=== PATIENT | male | born 1935 | race Caucasian/White ===

== ENCOUNTER 2016-06-10 09:35 | Emergency (ER) | payer OTHER ==
[~2016-06-10] VITALS: Ht 177.8 cm; Wt 68.0 kg
[~2016-06-10 09:35] MED LIST: ASPI1TAB7 PO; MEVA40TA PO; NAPR500 PO; REST30CA PO; ULTR50TA PO; [UNRECOGNIZED DRUG - REMARK]
[2016-06-10 09:37] VITALS: BP 153/72; PULSE 56; RESP 20; TEMP 97.4; O2SAT 100
--- NOTE | 2016-06-10 11:46 | RADRPT ---
EXAM DATE/TIME: 06/10/2016 11:16 [place] COMPARISON: No previous studies available for comparison. INDICATIONS : Left hip pain. MEDICAL HISTORY : None. SURGICAL HISTORY : None. ENCOUNTER: Initial ACUITY: 4 - 6 days PAIN SCORE: 10/10 LOCATION: Left Hip. FINDINGS: Examination of the left hip was performed with AP Pelvis. Advanced arthropathy is seen of the left hi p joint. There is marked joint space narrowing with [id number] apposition. Subchondral sclerosis is seen along the acetabular rim. There is a large subcortical cyst along the superolateral margin of t he acetabulum. Mild subchondral sclerosis is also seen along the articulating surface of the femur. The bony pelvis is intact. Moderate arthropathy is seen of the right hip. 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 Mild/moderate arthropathy of the right hip. Intact pelvis. No evidence of acute fracture or subluxation. Sergio Segundo MD on June 10, 2016 at 11:41 Board Certified Radiologist. This report was verified electronically.
--- NOTE | 2016-06-10 11:54 | PD ---
HPI Chief Complaint: Hip Injury Time Seen by Provider: 11:38 Travel History International Travel<30 days: No Contact w/Intl Traveler<30days: No Traveled to known affect area: No History of Present Illness HPI This is a 81-year-old male who presents to the emergency department having been walking on a treadmill 5 days ago when he felt like something slipped in his left hip. He didn't have much pain then but the day after he developed throbbing constant pain in his left hip, worse in the back near the buttock, worse with walking, improved with rest. The pain is nonradiating and he has no associated numbness or weakness. He denies any fevers or chills and has no history of diabetes. The patient reports that he was told 10 years ago that he needs bilateral hip replacements but he never had any problems so he never got it done. He has been able to walk since the injury. PFSH Past Medical History Heart Rhythm Problems: Yes Cancer: No High Cholesterol: Yes Diminished Hearing: No Endocrine: No Genitourinary: Yes (Years ago.) Hypertension: Yes Immune Disorder: No Musculoskeletal: No Neurologic: No Respiratory: No Renal Failure: Yes Past Surgical History Cardiac Surgery: Yes Tonsillectomy: Yes Other Surgery: Yes (PT STATES STENT IN BLOOD VESSEL IN NECK AND KIDNEY) Social History Alcohol Use: No Tobacco Use: No Substance Use: No Allergies-Medications (Allergen,Severity, Reaction): Coded Allergies: No Known Allergies (Verified , 10/25/14) Reported Meds & Prescriptions Reported Meds & Active Scripts Active Naprosyn (Naproxen) 500 Mg Tab 500 Mg PO BID PRN Reported Ultram (Tramadol HCl) 50 Mg Tab 50 Mg PO Q4H PRN [unk bp med] DAILY Restoril 30 mg (Temazepam) 30 Mg Cap 1 Cap PO HS Aspirin 81 mg Tab (Aspirin) 81 Mg Tab 81 Mg PO DAILY Lovastatin 40 Mg Tab 40 Mg PO DAILY Review of Systems Except as stated in HPI: all other systems reviewed are Neg Physical Exam Narrative GENERAL:Well appearing, no acute distress SKIN: Focused skin assessment warm and dry. HEAD: Atraumatic. Normocephalic. EYES: Pupils equal and round. No injection or drainage. ENT: Moist mucous membranes NECK: Trachea midline. CARDIOVASCULAR: Regular rate and rhythm. No murmur appreciated. 1+ bilateral DP pulses with normal capillary refill. RESPIRATORY: Clear to auscultation. Breath sounds equal bilaterally. GASTROINTESTINAL: Abdomen soft, non-tender, nondistended. MUSCULOSKELETAL: Pain with flexion of the left hip and with external rotation NEUROLOGICAL: Awake and alert. No obvious cranial nerve deficits. Moving all extremities. PSYCHIATRIC: Appropriate mood and affect; insight and judgment normal. Data Data Last Documented VS Vital Signs Date Time Temp Pulse Resp B/P Pulse Ox O2 Delivery O2 Flow Rate FiO2 06/10/16 09:37 97.4 56 20 153/72 100 Room Air Orders Hip, Uni(Ap&Lat) W Ap Pelvis (06/10/16 11:31) MDM Medical Decision Making Medical Screen Exam Complete: Yes Emergency Medical Condition: Yes Interpretation(s) Afebrile, bradycardic, mild hypertension X-ray: Advanced osteoarthritis of the left hip Differential Diagnosis Osteoarthritis, sacroiliitis, occult fracture, meralgia paresthetica Narrative Course This is an 81-year-old male who presents to the emergency department with left hip pain that started after he was walking on a treadmill 5 days ago. He isn't reassuring neurovascular exam. X-ray confirms advanced osteoarthritis of the left hip. He was advised to take Tylenol for pain, rest his hip and follow-up with orthopedics if his symptoms are not improved. Diagnosis Primary Impression: Osteoarthritis of left hip Qualified Code: M16.12 - Primary osteoarthritis of left hip Referrals: Graham Hall MD Patient Instructions: General Instructions Additional Instructions: If you develop weakness of your legs, difficulty walking, numbness of your legs or your genital or rectal area, loss of your bowel or bladder, or difficulty urinating return to the emergency department immediately. Followup with an orthopedic doctor if your symptoms are not improved with Tylenol and rest. Med/Other Pt SpecificInfo: No Change to Meds Disposition: 01 DISCHARGE HOME Condition: Stable Vy Downs MD Jun 10, 2016 11:54
[2016-06-10] MEDS ORDERED: METO25TA3 PO (11:58)
[2016-06-10] MEDS ORDERED: LOSA100T PO (11:58)
[2016-06-10] MEDS ORDERED: LOVA40TA PO (11:58)
[2016-06-10] MEDS ORDERED: ASPI325T PO (11:58)
[2016-06-10] MEDS ORDERED: REST30CA PO (11:58)
[2016-06-10] MEDS ORDERED: AMLO5TAB2 PO (11:58)
== END 2016-06-10 12:18 | disposition home or self-care (01) ==
LOC: NEPD 09:35
DX: M16.12 Unilateral primary osteoarthritis, left hip (principal); E78.00 Pure hypercholesterolemia, unspecified; I10 Essential (primary) hypertension
CPT/HCPCS: 73502; 99283

== ENCOUNTER 2017-12-15 11:27 | Inpatient (IN) ==
[2017-12-15] MEDS ORDERED: Morphine Inj 4 MG/ML Vial IV.PUSH ONE (11:39)
[2017-12-15] MEDS ORDERED: Sod Chloride 0.9% Inj 1,000 ML IV.SIG ONE (11:39)
[2017-12-15 12:21] LABS: Baso % (Auto) 0.1 % (0.0-2.0); Hematocrit 43.5 % (39.0-51.0); Hemoglobin 14.7 gm/dL (13.0-17.0); Lymph # (Auto) 0.7 th/mm3 (1.0-4.8); Lymph % (Auto) 4.2 % (9.0-44.0); Mean Corpuscular HGB Conc 33.8 % (32.0-36.0); Mean Corpuscular Hemoglobin 29.4 pg (27.0-34.0); Mean Platelet Volume 9.1 fL (7.0-11.0); Mono # (Auto) 0.6 th/mm3 (0.0-0.9); Mono % (Auto) 3.8 % (0.0-8.0); Neut # (Auto) 14.5 th/mm3 (1.8-7.7); Neut % (Auto) 91.9 % (16.0-70.0); Platelet Count 170 th/mm3 (150-450); Red Cell Distribution Width 13.5 % (11.6-17.2); White Blood Count 15.8 th/mm3 (4.0-11.0)
--- NOTE | 2017-12-15 12:32 | ED ---
HPI General Chief Complaint: Abdominal Pain Stated Complaint: ABD Pain Time Seen by Provider: 12/15/17 11:39 Source: patient Mode of arrival: ambulatory Limitations: no limitations History of Present Illness HPI narrative: 82-year-old male presents to the emergency department via EV[facility] for evaluation of abdominal pain, nausea and vomiting that started this morning. Patient states he has not had a bowel movement in 2 days but states this is normal for him. Patient points to left lower quadrant says his pain is 10/10,constant, aching, and nonradiating. No palliative or provocative factors. Patient received 4 mg Zofran which helped controlled his nausea prior to arrival. He received 500 cc of NS IVF as well. Patient says he has had multiple dark vomitus over 24 hrs. He denies hematochezia or melena. He says he has a history of a liver artery stent placement performed 15yrs ago. He denies shortness of breath, chest pain. Denies alcohol or other illicit drug use. States he smoke 1/2 PPD cigarettes. Related Data Home Medications Medication Instructions Recorded Confirmed losartan 100 mg PO DAILY 12/15/17 12/15/17 lovastatin 40 mg PO DAILY 12/15/17 12/15/17 Allergies Allergy/AdvReac Type Severity Reaction Status Date / Time No Known Allergies Allergy Verified 12/15/17 11:52 Review of Systems ROS: all other systems reviewed are negative [facility] Medical History Medical History CAD (coronary artery disease) (Acute) Diverticulitis (Acute) HTN (hypertension) (Acute) High cholesterol (Acute) Surgical History Surgical History History of biliary stent insertion (Acute) Family History Family History Other Family history normal Social History Social History Second Hand Smoke Exposure: Yes Smoking Status: Former smoker Tobacco Type: Cigarettes How Often Do You Have a Drink Containing Alcohol: Never Recent Travel in [facility] within the Last 8 Weeks: No Recent Out of Country Travel within the Last 8 Weeks: No Immunization History Tetanus Immunization: Unsure Exam Narrative Exam Narrative: GENERAL: WD,WN in mild distress, tremulous SKIN: Warm and dry. HEAD: Atraumatic. Normocephalic. EYES: Pupils equal and round. No scleral icterus. No injection or drainage. ENT: No nasal bleeding or discharge. Mucous membranes pink and moist. NECK: Trachea midline. No JVD. no lyphadenopathy. CARDIOVASCULAR: Regular rate and rhythm. RESPIRATORY: No accessory muscle use. Clear to auscultation. Breath sounds equal bilaterally. GASTROINTESTINAL: Abdomen midline scar present, voluntary guarding present, questionable nonpulsatile mass of the LUQ, no rebound TTP, no CVAT MUSCULOSKELETAL: Extremities without clubbing, cyanosis, or edema. No obvious deformities. No tenderness palpation of the calves NEUROLOGICAL: Awake and alert. No obvious cranial nerve deficits. Motor grossly within normal limits. Five out of 5 muscle strength in the arms and legs. Normal speech. PSYCHIATRIC: Appropriate mood and affect; insight and judgment normal. Course Initial Documented Vital Signs Temperature 99.8 F H 12/15/17 11:34 Pulse Rate 86 12/15/17 11:34 Respiratory Rate 20 12/15/17 11:34 Blood Pressure 172/78 H 12/15/17 11:34 Pulse Oximetry 96 12/15/17 11:34 Last Documented Vital Signs Temperature 99.8 F H 12/15/17 11:34 Pulse Rate 107 H 12/15/17 15:48 Respiratory Rate 15 12/15/17 15:48 Blood Pressure 151/71 H 12/15/17 15:48 Pulse Oximetry 96 12/15/17 15:48 Medical Decision Making [facility] Narrative Medical decision making narrative: 82-year-old male presents to the emergency department via EVAC for abdominal pain, nausea and vomiting that started over the last 24 hours. Patient states he has not had a bowel movement in 2-3 days however, states that this is normal for him. He points to the LLQ as to his most painful area. He has had dark colored vomitus but denies melena or hematochezia. His vital signs are stable. Labs notable for white blood cells 15.8, 91.9% neutrophils, BUN/Cr 37/1.47, Alk Phos 154, lipase 69. 1L NS given. @138p Reassessed patient. He states nausea is improved. Pain continues to be 10/ 10. Ordered 500cc NS IVF, dilaudid 1mg. Flagyl 500mg, Cipro 500mg PO. Will give PO challenge. If he is able to tolerate fluids, will allow to go home. I explained the importance of follow up with a vascular specialist regarding the incidental findings or the aneurysms. @232 Reassessed patient and continues to have 10/10 abdominal pain. His vitals are HR 110, BP 144/65, SaO2 81-90 while sleeping, 94% while awake. (no h/o CPAP or COPD). Applied 2LPM O2. Ordered CXR for evaluation of hypoxia. CXR shows bibasilar atelectasis. Pt will be admitted for intractable abdominal pain and colitis. There is a questionable mass or colitis is noted. I do not believe this requires emergent therapy at this time. I spoke with Dr. Boss who agreed to the admission. Medical Screen Exam Complete: Yes Emergency Medical Condition: Yes Differential Diagnosis Differential Diagnosis: Small bowel obstruction, diverticulitis, gastritis, appendicitis, mesenteric ischemia Lab Data Result diagrams: 12/15/17 11:46 12/15/17 11:46 Lab Results 12/15/17 12/15/17 12/15/17 Range/Units 11:46 11:46 11:46 WBC 15.8 H (4.0-11.0) th/mm3 RBC 5.00 (4.50-5.90) mil/mm3 Hgb 14.7 (13.0-17.0) gm/dL Hct 43.5 (39.0-51.0) % MCV 87.0 (80.0-100.0) fL MCH 29.4 (27.0-34.0) pg MCHC 33.8 (32.0-36.0) % RDW 13.5 (11.6-17.2) % Plt Count 170 (150-450) th/mm3 MPV 9.1 (7.0-11.0) fL Neut % (Auto) 91.9 H (16.0-70.0) % Lymph % (Auto) 4.2 L (9.0-44.0) % Ritchie % (Auto) 3.8 (0.0-8.0) % Eos % (Auto) 0.0 (0.0-4.0) % Baso % (Auto) 0.1 (0.0-2.0) % Neut # (Auto) 14.5 H (1.8-7.7) th/mm3 Lymph # (Auto) 0.7 L (1.0-4.8) th/mm3 Ritchie # (Auto) 0.6 (0.0-0.9) th/mm3 Eos # (Auto) 0.0 (0.0-0.4) th/mm3 Baso # (Auto) 0.0 (0.0-0.2) th/mm3 WBC Differential . Differential Comment Auto diff final PT 11.4 (9.8-11.6) sec INR 1.1 Ratio APTT 22.6 L (24.3-30.1) sec Sodium 140 (136-145) meq/L Potassium 4.3 (3.5-5.1) meq/L Chloride 108 H (98-107) meq/L Carbon Dioxide 23.5 (21.0-32.0) meq/L Anion Gap 9 (5-15) meq/L BUN 37 H (7-18) mg/dL Creatinine 1.47 H (0.60-1.30) mg/dL Estimated GFR 46 L (>89) mL/min Random Glucose 113 H (74-106) mg/dL Calcium 8.6 (8.5-10.1) mg/dL Magnesium 2.4 (1.5-2.5) mg/dL Total Bilirubin 1.3 H (0.2-1.0) mg/dL AST 17 (15-37) U/L ALT 21 (12-78) U/L Alkaline Phosphatase 154 H (45-117) U/L C-Reactive Protein 1.30 H (0.00-0.30) mg/dL Total Protein 7.6 (6.4-8.2) g/dL Albumin 3.9 (3.4-5.0) g/dL Lipase 69 L (73-393) U/L 12/15/17 Range/Units 11:46 WBC (4.0-11.0) th/mm3 RBC (4.50-5.90) mil/mm3 Hgb (13.0-17.0) gm/dL Hct (39.0-51.0) % MCV (80.0-100.0) fL MCH (27.0-34.0) pg MCHC (32.0-36.0) % RDW (11.6-17.2) % Plt Count (150-450) th/mm3 MPV (7.0-11.0) fL Neut % (Auto) (16.0-70.0) % Lymph % (Auto) (9.0-44.0) % Ritchie % (Auto) (0.0-8.0) % Eos % (Auto) (0.0-4.0) % Baso % (Auto) (0.0-2.0) % Neut # (Auto) (1.8-7.7) th/mm3 Lymph # (Auto) (1.0-4.8) th/mm3 Ritchie # (Auto) (0.0-0.9) th/mm3 Eos # (Auto) (0.0-0.4) th/mm3 Baso # (Auto) (0.0-0.2) th/mm3 WBC Differential Differential Comment PT (9.8-11.6) sec INR Ratio APTT (24.3-30.1) sec Sodium (136-145) meq/L Potassium (3.5-5.1) meq/L Chloride (98-107) meq/L Carbon Dioxide (21.0-32.0) meq/L Anion Gap (5-15) meq/L BUN (7-18) mg/dL Creatinine (0.60-1.30) mg/dL Estimated GFR (>89) mL/min Random Glucose (74-106) mg/dL Calcium (8.5-10.1) mg/dL Magnesium (1.5-2.5) mg/dL Total Bilirubin (0.2-1.0) mg/dL AST (15-37) U/L ALT (12-78) U/L Alkaline Phosphatase (45-117) U/L C-Reactive Protein Cancelled (0.00-0.30) mg/dL Total Protein (6.4-8.2) g/dL Albumin (3.4-5.0) g/dL Lipase (73-393) U/L Imaging Data Radiologist's impression: Abdomen/Pelvis CT 12/15/17 11:39 CONCLUSION: 1. Multiple ventral hernias are noted as above. There is abnormal circumferential bowel wall thickening identified greatest at the transverse colon characteristic of colitis.This is quite prominent at the mid transverse colon and follow-up is recommended after appropriate clinical therapy to ensure no underlying mass is not present. 2. Thoracic and abdominal aortic aneurysms. Chest X-Ray 12/15/17 14:53 CONCLUSION: 1. Mild bibasilar atelectatic changes. 2. No acute infiltrate. Discharge Plan Discharge Disposition Patient Disposition: 30 Still Patient Discharge Condition Condition: Stable Discharge Details Diagnosis: Colitis Physicians Team ED Provider: Rhett Serrano ED Midlevel Provider: Erica Young Primary Care Provider: Bree Ji Attending Provider: Carmencita Boss Other Providers: Joanna Stanley ; Fiorella Easley Status ED Status: Left Department Discharge Information Discharge Date/Time: 12/15/17 16:38
[2017-12-15 12:33] LABS: Alanine Aminotransferase 21 U/L (12-78); Albumin 3.9 g/dL (3.4-5.0); Anion Gap 9 meq/L (5-15); Aspartate Aminotransferase 17 U/L (15-37); Blood Urea Nitrogen 37 mg/dL (7-18); Calcium 8.6 mg/dL (8.5-10.1); Carbon Dioxide 23.5 meq/L (21.0-32.0); Chloride 108 meq/L (98-107); Glomerular Filtration Rate 46 mL/min (>89); Glucose,Random 113 mg/dL (74-106); Lipase 69 U/L (73-393); Magnesium 2.4 mg/dL (1.5-2.5); Potassium 4.3 meq/L (3.5-5.1); Sodium 140 meq/L (136-145)
[2017-12-15 12:36] LABS: Alkaline Phosphatase 154 U/L (45-117); Total Protein 7.6 g/dL (6.4-8.2)
[2017-12-15 12:37] LABS: Activated Partial Thrombo Time 22.6 sec (24.3-30.1); INR 1.1 Ratio; Prothrombin Time 11.4 sec (9.8-11.6)
--- NOTE | 2017-12-15 13:19 | CT ---
EXAM DATE: 12/15/2017 12:42 PM EDT AGE/SEX: 82 years / Male INDICATIONS: Left side abdominal pain. Nausea, vomiting. Constipation for two days. CLINICAL DATA: This is the patient's initial encounter. Patient reports that signs and symptoms have been present for 2 days and indicates a pain score of 10/10. MEDICAL/SURGICAL HISTORY: Diverticulitis. Hypertension. None. ORAL CONTRAST: No oral contrast ingested. RADIATION DOSE: 6.64 CTDI (mGy) COMPARISON: synapse default, HIP RIGHT (AP&LAT 2/3VWS) W AP PELVIS, 06/10/2016. . TECHNIQUE: Multiple contiguous axial images were obtained through the abdomen and pelvis following b olus infusion of 71 ml Omnipaque 350 (iohexol) nonionic water-soluble contrast as a single exam dos e. No oral contrast ingested. Using automated exposure control and adjustment of the mA and/or kV ac cording to patient size, radiation dose was kept as low as reasonably achievable to obtain optimal di agnostic quality images. DICOM format image data is available electronically for review and comparis on. FINDINGS: There is linear atelectasis versus scarring in the lingula and right lower lobe. No pleural or perica rdial effusions. Diffuse atherosclerotic calcification of the aorta and iliac vasculature as well as coronary arteries. There is aneurysmal dilatation of the descending thoracic aorta up to 4.2 cm, as w ell as abdominal aortic aneurysm measuring 4.3 x 4.6 cm in AP transverse dimension on image 40 at the level of the renal arteries, and 3.4 x 3.7 cm on image 48 at the infrarenal abdominal aorta. The com mon iliac arteries are also prominent in caliber up to 1.7 cm on the right and borderline prominent o n the left up to 1.4 cm. Urinary bladder and prostate are unremarkable. There is diverticulosis of th e sigmoid colon. There is trace free fluid in the pelvis. There is abnormal circumferential bowel wal l thickening involving the mid descending colon to the proximal transverse colon. More focal pronounc ed circumferential bowel wall thickening involving the mid transverse colon extends 8.3 cm in length. This is characteristic of colitis. There is a tiny right paramedian upper abdominal ventral hernia m easuring 8.7 mm on axial image 36 containing fat. There is an abdominal wall hernia at the midline matson praumbilical level measuring 3.4 cm in transverse dimension on image 42 containing fat and mesenteric vessels. Just below this is an additional fat-containing ventral hernia measuring 5.1 cm in transver se dimension. 0.9 cm transverse abdominal wall defect containing fat on image 52 as above the umbilic us. The osseous structures demonstrate degenerative changes of the spine and bilateral hips. The righ t kidney is atrophic. Left kidney is unremarkable. Pancreas, bilateral adrenal glands, gallbladder, l iver and spleen are unremarkable. Scattered calcified granulomas are noted. CONCLUSION: 1. Multiple ventral hernias are noted as above. There is abnormal circumferential bowel wall thickening identified greatest at the transverse colon c haracteristic of colitis.This is quite prominent at the mid transverse colon and follow-up is recomme nded after appropriate clinical therapy to ensure no underlying mass is not present. 2. Thoracic and abdominal aortic aneurysms. Electronically signed by: Imtiaz Aburto MD 12/15/2017 1:18 PM EDT
[2017-12-15] MEDS ORDERED: Ciprofloxacin 500 MG Tablet PO ONE (13:36)
[2017-12-15] MEDS ORDERED: HYDROmorphone PF Inj 2 MG/ML Vial IV.PUSH ONE (13:36)
[2017-12-15] MEDS ORDERED: metroNIDAZOLE 500 MG Tablet PO ONE (13:36)
[2017-12-15] MEDS ORDERED: Sodium Chlor 0.9% Inj 500 ML IV.SIG SCH (14:00)
--- NOTE | 2017-12-15 15:38 | XR ---
EXAM DATE: 12/15/2017 2:53 PM EDT AGE/SEX: 82 years / Male INDICATIONS: Short of breath. CLINICAL DATA: This is the patient's initial encounter. Patient reports that signs and symptoms have been present for 1 day and indicates a pain score of 0/10. MEDICAL/SURGICAL HISTORY: . Diverticulitis. Hypertension. None. COMPARISON: synapse default, CHEST SINGLE AP, 07/12/2014. . FINDINGS: A single AP view of the chest demonstrates the lungs to be symmetrically aerated with mild bibasilar atelectatic changes. No confluent infiltrate or effusion. Heart size is upper limits of normal accoun ting for technique. Degenerative spurring of the dorsal spine. Anterior fixation of the lower cervica l spine. CONCLUSION: 1. Mild bibasilar atelectatic changes. 2. No acute infiltrate. Electronically signed by: Sal Valdez MD 12/15/2017 3:36 PM EDT
[2017-12-15] MEDS ORDERED: Bisacodyl 10 MG Supp RECTAL PRN (15:47)
--- NOTE | 2017-12-15 15:47 | P.HPIM ---
History of Present Illness Service: [facility] Primary Care Physician: Bree Ji MD Chief Complaint: abd pain History of Present Illness: This is an 82-year-old CM with PMHx of HTN, CAD, and HLD who presented to the ED for evaluation of abdominal pain, nausea and vomiting that started this morning at 5AM. Patient states he has not had a bowel movement in 2 days but states this is his baseline. Patient reports LLQ pain, 5/10, constant, aching, and nonradiating. Sx worsening with movement, alleviated with Morphine. Patient reports emesis has been dark brown, denies hematochezia or melena. Patient denies fever, chills, sick contacts, and diarrhea. Patient is a smoker. Hx of CAD on plavix started in 2011 but noncompliant with Plavix. Does not see Cards as OP. Patient denies use of NSAID's. Hx of biliary stent placement. Patient is a poor historian. - Diagnosis (1) HTN (hypertension) (2) Acute kidney failure (3) AAA (abdominal aortic aneurysm) (4) Colitis (5) Leukocytosis Review of Systems All other systems reviewed negative except as stated in HPI PMFSH - History History Provided By: Patient, Family Member Caretaker / EMT - Medical History Medical History: Medical History (Last Updated 12/15/17 @ 16:53 by Carmencita Boss MD) CAD (coronary artery disease) Diverticulitis HTN (hypertension) High cholesterol - Surgical History Surgical History: Surgical History (Last Updated 12/15/17 @ 16:54 by Carmencita Boss MD) History of biliary stent insertion - Family History Family History: Family History (Last Updated 12/15/17 @ 16:58 by Carmencita Boss MD) Other Family history normal - Tobacco History Second Hand Smoke Exposure: Yes Tobacco Use In Past 30 Days: Yes Smoking Status: Current every day smoker Tobacco Type: Cigarettes - Alcohol History How Often Do You Have a Drink Containing Alcohol: Never - Travel History Recent Travel in the [place] Within the Last 8 Weeks: No Recent Travel Out of the Country Within the Last 8 Weeks: No - Immunization History Tetanus Immunization: Unsure Medications and Allergies Active Medications: Active Medications Sodium Chloride (Ns Inj) 500 mls @ 0 mls/hr IV.SIG BOLUS TERI Last Infusion: 12/15/17 14:38 Dose: Infused Sodium Chloride (Ns Flush) 2 ml IV.FLUSH PRN PRN PRN Reason: FLUSH AFTER USING IV ACCESS Allergies Allergy/AdvReac Type Severity Reaction Status Date / Time No Known Allergies Allergy Verified 12/15/17 11:52 Home Medications Medication Instructions Recorded Confirmed Type losartan 100 mg PO DAILY 12/15/17 12/15/17 History lovastatin 40 mg PO DAILY 12/15/17 12/15/17 History Exam Vital signs: Vital Signs 12/15/17 11:34 12/15/17 13:37 12/15/17 13:46 Temperature 99.8 F H Pulse Rate 86 102 H Respiratory Rate 20 18 10 L Blood Pressure 172/78 H 154/72 H Pulse Oximetry 96 93 L Intake & Output 12/14/17 12/15/17 12/15/17 18:59 06:59 18:59 Intake Total 1500 / 1500 Balance 1500 / 1500 Weight 68.039 kg Intake: IV 1500 / 1500 NS Inj 1,000 ML @ Wide Open IV. 1000 / 1000 SIG BOLUS ONE Rx#:[id number] NS Inj 500 ML @ Wide Open IV. 500 / 500 SIG BOLUS TERI Rx#:[id number] Narrative: GENERAL: Thin male, in no acute distress, lying comfortably in bed SKIN: Warm and dry. HEENT: Normocephalic. No scleral icterus. No injection or drainage. PERRLA, MOM. NECK: Supple, trachea midline. No JVD or lymphadenopathy. CARDIOVASCULAR: Regular rate and rhythm without murmurs, gallops, or rubs. RESPIRATORY: Breath sounds equal bilaterally. No accessory muscle use. GASTROINTESTINAL: Abdomen soft, non-tender, nondistended. Neg rebound. No acute abdomen. Ventral hernia noted with valsalva. MUSCULOSKELETAL: No cyanosis, or edema. BACK: Nontender without obvious deformity. No CVA tenderness. NEURO/PSYCH: AAOx3, no focal deficits, motor system intact 5/5 x 4. Pleasant, cooperative. Results - Labs CBC & Chem 7: 12/15/17 11:46 12/15/17 11:46 Labs: Short CBC 12/15/17 Range/Units 11:46 WBC 15.8 H (4.0-11.0) th/mm3 Hgb 14.7 (13.0-17.0) gm/dL Hct 43.5 (39.0-51.0) % Plt Count 170 (150-450) th/mm3 [facility] 12/15/17 11:46 Sodium 140 Potassium 4.3 Chloride 108 H Carbon Dioxide 23.5 BUN 37 H Creatinine 1.47 H Calcium 8.6 Liver Function 12/15/17 Range/Units 11:46 Total Bilirubin 1.3 H (0.2-1.0) mg/dL AST 17 (15-37) U/L ALT 21 (12-78) U/L Alkaline Phosphatase 154 H (45-117) U/L Albumin 3.9 (3.4-5.0) g/dL - Imaging Impressions Abdomen/Pelvis CT 12/15/17 11:39 CONCLUSION: 1. Multiple ventral hernias are noted as above. There is abnormal circumferential bowel wall thickening identified greatest at the transverse colon characteristic of colitis.This is quite prominent at the mid transverse colon and follow-up is recommended after appropriate clinical therapy to ensure no underlying mass is not present. 2. Thoracic and abdominal aortic aneurysms. Chest X-Ray 12/15/17 14:53 CONCLUSION: 1. Mild bibasilar atelectatic changes. 2. No acute infiltrate. Caprini VTE Risk Assessment Caprini VTE Risk Assessment: No/Low Risk (score <= 1) Caprini Risk Assessment Model: Point Value = 1 Point Value = 2 Point Value = 3 Point Value = 5 Age 41-60 Minor surgery BMI > 25 kg/m2 Swollen legs Varicose veins or History of unexplained or recurrent spontaneous Oral contraceptives or hormone replacement Sepsis (< 1 month) Serious lung disease, including pneumonia (< 1 month) Abnormal pulmonary function Acute myocardial infarction Congestive heart failure (< 1 month) History of inflammatory bowel disease Medical patient at bed rest Age 61-74 Arthroscopic surgery Major open surgery (> 45 min) Laparoscopic surgery (> 45 min) Malignancy Confined to bed (> 72 hours) Immobilizing plaster cast Central venous access Age >= 75 History of VTE Family history of VTE Factor V Leiden Prothrombin [id number] Lupus anticoagulant Anticardiolipin antibodies Elevated serum homocysteine Heparin-induced thrombocytopenia Other congenital or acquired thrombophilia Stroke (< 1 month) Elective arthroplasty Hip, pelvis, or leg fracture Acute spinal cord injury (< 1 month) Prophylaxis Regimen: Total Risk Factor Score Risk Level Prophylaxis Regimen 0-1 Low Early ambulation 2 Moderate Order ONE of the following: *Sequential Compression Device (SCD) *Heparin 5000 units SQ BID 3-4 Higher Order ONE of the following medications: *Heparin 5000 units SQ TID *Enoxaparin/Lovenox 40 mg SQ daily (WT < 150 kg, CrCl > 30 mL/min) *Enoxaparin/Lovenox 30 mg SQ daily (WT < 150 kg, CrCl > 10-29 mL/min) *Enoxaparin/Lovenox 30 mg SQ BID (WT < 150 kg, CrCl > 30 mL/min) AND/OR *Sequential Compression Device (SCD) 5 or more Highest Order ONE of the following medications: *Heparin 5000 units SQ TID (Preferred with Epidurals) *Enoxaparin/Lovenox 40 mg SQ daily (WT < 150 kg, CrCl > 30 mL/min) *Enoxaparin/Lovenox 30 mg SQ daily (WT < 150 kg, CrCl > 10-29 mL/min) *Enoxaparin/Lovenox 30 mg SQ BID (WT < 150 kg, CrCl > 30 mL/min) AND *Sequential Compression Device (SCD) Assessment and Plan - Assessment (1) HTN (hypertension) Code(s): I10 - Essential (primary) hypertension Status: Chronic (2) Acute kidney failure Code(s): N17.9 - Acute kidney failure, unspecified Status: Acute (3) AAA (abdominal aortic aneurysm) Code(s): I71.4 - Abdominal aortic aneurysm, without rupture Status: Chronic (4) Colitis Code(s): K52.9 - Noninfective gastroenteritis and colitis, unspecified Status : Acute (5) Leukocytosis Code(s): D72.829 - Elevated white blood cell count, unspecified Status: Acute - Plan This is an 82-year-old CM with PMhx of HTN and HLD admitted for IP mgmt of Abd pain and per CT found to have Colitis/Diverticulosis, patient admitted for IVF, antiemetics, and ABX, HD#1 1. Abdominal Pain/Colitis/Diverticulosis Likely due to Colitis Dx per CT ABD Cont. Cipro PO BID and Flagyl PO TID Morphine/Zofran PRN NPO, IVF's, PPI IV, Hemoccult in case of Upper GI Bleed GI consulted, appreciate assistance with management CT ABD: Multiple ventral hernias are noted as above. There is abnormal circumferential bowel wall thickening identified greatest at the transverse colon characteristic of colitis. This is quite prominent at the mid transverse colon and follow-up is recommended after appropriate clinical therapy to ensure no underlying mass is not present. Thoracic and abdominal aortic aneurysms. 2. Acute Kidney Injury BUN 37, Cr 1.47 (Cr 1.18 on 06/2014) Cont. NS at 125ml/hr Avoid nephrotoxic meds Follow-up BMP in AM 3. Hypertension Continue home losartan 4. Hyperlipidemia Continue home statin 5. History of CAD History of NSTEMI in 2014, Plavix stopped a few months ago Patient does not follow-up with cardiology Patient reports that he does not want to resume Plavix and admits to noncompliance 6. Leukocytosis WBC 15.8 on admission We will obtain CRP Will obtain U/A and blood cultures CXR Neg 7. Aortic Aneurysm Dx per CT ABX Dilatation of the descending thoracic aorta up to 4.2 cm, as well as abdominal aortic aneurysm measuring 4.3 x 4.6 cm in AP transverse dimension on image 40 at the level of the renal arteries, and 3.4 x 3.7 cm on image 48 at the infrarenal abdominal aorta. AAA 3.6cm on CT ABD on 06/2014 We will consult vascular surgery, appreciate assistance with management 8. Bibasilar Atelectasis Dx per CXR Incentive spirometer ordered and encourage 9. Abd Wall/Ventral Hernias per CT Containing fat, also present per CT ABD 06/2011 No rebound tenderness or sx of acute abdomen 10. Tobacco Abuse Encourage cessation and risks discussed Offer to continue nicotine patch if patient desires 11. DVT PPX: SCD's Code Status: full Discussed Condition With: patient, RN
--- NOTE | 2017-12-15 16:54 | P.PNVS ---
Subjective Subjective/Hospital Course: 82-year-old gentleman admitted for unrelated reasons i.e. diverticulosis with partial LBO and on CT of the chest and abdomen has incidental findings of 4.2 cm in diameter ascending aortic aneurysm and about 4 cm in diameter infrarenal abdominal aortic aneurysm extending into the iliac arteries. At this point neither of these lesions is life-threatening or suspected of rapid expansion or rupture and therefore observation will be necessary in the future. Patient is clearly not a candidate for the ascending aortic aneurysm repair however the abdominal aortic aneurysm will be addressed if it grows over 5.5 cm in diameter in the future I will continue to follow patient also from the abdominal surgery point, as far as his diverticulosis and partial LBO is concerned and if then any surgical intervention is needed will address it myself. Full consult dictated Thanks J Objective Vital Signs / I&O: Vital Signs 12/15/17 11:34 12/15/17 13:37 12/15/17 13:46 Temperature 99.8 F H Pulse Rate 86 102 H Respiratory Rate 20 18 10 L Blood Pressure 172/78 H 154/72 H Pulse Oximetry 96 93 L 12/15/17 15:48 Temperature Pulse Rate 107 H Respiratory Rate 15 Blood Pressure 151/71 H Pulse Oximetry 96 Intake & Output 12/14/17 12/15/17 12/15/17 18:59 06:59 18:59 Intake Total 1500 / 1500 Balance 1500 / 1500 Weight 68.039 kg Intake: IV 1500 / 1500 NS Inj 1,000 ML @ Wide Open IV. 1000 / 1000 SIG BOLUS ONE Rx#:[id number] NS Inj 500 ML @ Wide Open IV. 500 / 500 SIG BOLUS TERI Rx#:[id number] Laboratory Results - last 24 hr 12/15/17 12/15/17 12/15/17 11:46 11:46 11:46 WBC 15.8 H RBC 5.00 Hgb 14.7 Hct 43.5 MCV 87.0 MCH 29.4 MCHC 33.8 RDW 13.5 Plt Count 170 MPV 9.1 Neut % (Auto) 91.9 H Lymph % (Auto) 4.2 L [place] % (Auto) 3.8 Eos % (Auto) 0.0 Baso % (Auto) 0.1 Neut # (Auto) 14.5 H Lymph # (Auto) 0.7 L [place] # (Auto) 0.6 Eos # (Auto) 0.0 Baso # (Auto) 0.0 WBC Differential . Differential Comment Auto diff final PT 11.4 INR 1.1 APTT 22.6 L Sodium 140 Potassium 4.3 Chloride 108 H Carbon Dioxide 23.5 Anion Gap 9 BUN 37 H Creatinine 1.47 H Estimated GFR 46 L Random Glucose 113 H Calcium 8.6 Magnesium 2.4 Total Bilirubin 1.3 H AST 17 ALT 21 Alkaline Phosphatase 154 H C-Reactive Protein 1.30 H Total Protein 7.6 Albumin 3.9 Lipase 69 L 12/15/17 11:46 WBC RBC Hgb Hct MCV MCH MCHC RDW Plt Count MPV Neut % (Auto) Lymph % (Auto) [place] % (Auto) Eos % (Auto) Baso % (Auto) Neut # (Auto) Lymph # (Auto) [place] # (Auto) Eos # (Auto) Baso # (Auto) WBC Differential Differential Comment PT INR APTT Sodium Potassium Chloride Carbon Dioxide Anion Gap BUN Creatinine Estimated GFR Random Glucose Calcium Magnesium Total Bilirubin AST ALT Alkaline Phosphatase C-Reactive Protein Cancelled Total Protein Albumin Lipase Impressions Abdomen/Pelvis CT 12/15/17 11:39 CONCLUSION: 1. Multiple ventral hernias are noted as above. There is abnormal circumferential bowel wall thickening identified greatest at the transverse colon characteristic of colitis.This is quite prominent at the mid transverse colon and follow-up is recommended after appropriate clinical therapy to ensure no underlying mass is not present. 2. Thoracic and abdominal aortic aneurysms. Chest X-Ray 12/15/17 14:53 CONCLUSION: 1. Mild bibasilar atelectatic changes. 2. No acute infiltrate.
[2017-12-15] MEDS ORDERED: Magnesium Citrate Liq 300 ML Bottle PO ONE (17:21)
--- NOTE | 2017-12-15 17:23 | P.CONGI ---
History of Present Illness Consult date: 12/15/17 Consult reason: Colitis Chief complaint: colitis History of Present Illness: Mr. Avilez is an 82-year-old male patient who presented to the emergency room today at [facility] with report of pain across lower abdomen, nausea and vomiting onset yesterday a.m. 0500. Patient describes the pain as a cramping sensation and rates same at 7 out of 10 at this time. He denies that there are any aggravating or alleviating factors. He reports vomiting several times over the last 24 hours "black stuff". Of note, patient states that he takes 1 full strength aspirin 325 mg p.o. daily for his blood pressure. Patient denies hematochezia or melena. Patient states he has a history of liver artery stent placement performed in 2002 and has not had follow-up since. Again, patient reports pain across lower abdomen, pointing to left lower quadrant stating "it is worse there ". Patient denies having any fever or chills. States last colonoscopy in 2002 where he recollects they found polyps that were benign. He reports having 2-3 hard brown bowel movements daily as a normality for him. He denies any noted bleeding. Patient denies ever having had an upper endoscopy. 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 He endorses dysphagia and denies odynophagia. Patient states he smokes 1 pack/day and denies any alcohol use. Patient denies any known family history of gastrointestinal disorders/diseases. (12/15) CT abdomen and pelvis done on admission revealed the following--> Multiple ventral hernias are noted as above.There is abnormal circumferential bowel wall thickening identified greatest at the transverse colon characteristic of colitis.This is quite prominent at the mid transverse colon and follow-up is recommended after appropriate clinical therapy to ensure no underlying mass is not present. Thoracic and abdominal aortic aneurysms. Our service has been consulted to evaluate patient's report of Abdominal pain, Colitis. 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 - Medical History Medical History: Medical History (Last Updated 12/15/17 @ 16:53 by Carmencita Boss MD) CAD (coronary artery disease) Diverticulitis HTN (hypertension) High cholesterol - Surgical History Surgical History: Surgical History (Last Updated 12/15/17 @ 16:54 by Carmencita Boss MD) History of biliary stent insertion - Family History Family History: Family History (Last Updated 12/15/17 @ 16:58 by Carmencita Boss MD) Other Family history normal - Tobacco History Tobacco Use In Past 30 Days: Yes Smoking Status: Former smoker Tobacco Type: Cigarettes - Alcohol History How Often Do You Have a Drink Containing Alcohol: Never - Travel History Recent Travel in the [place] Within the Last 8 Weeks: No Recent Travel Out of the Country Within the Last 8 Weeks: No - Immunization History Tetanus Immunization: Unsure <Mallory Hernandez - Last Filed: 12/15/17 17:24> - Medical History Medical History: Medical History (Last Updated 12/15/17 @ 16:53 by Carmencita Boss MD) CAD (coronary artery disease) Diverticulitis HTN (hypertension) High cholesterol - Surgical History Surgical History: Surgical History (Last Updated 12/15/17 @ 16:54 by Carmencita Boss MD) History of biliary stent insertion - Family History Family History: Family History (Last Updated 12/15/17 @ 16:58 by Carmencita Boss MD) Other Family history normal <Joanna Stanley - Last Filed: 12/15/17 19:17> Medications and Allergies Active Medications: Active Medications Acetaminophen (Tylenol) 650 mg PO Q4H PRN PRN Reason: Temp > 100.4 Al Hydroxide/Mg Hydroxide (Milk Of Magnesia Liq) 30 ml PO Q12H PRN PRN Reason: Mild Constipation Bisacodyl (Dulcolax Supp) 10 mg RECTAL DAILY PRN PRN Reason: SEVERE CONSITIPATION Ciprofloxacin HCl (Cipro) 500 mg PO Q12HR TERI Sodium Chloride (Ns Inj) 500 mls @ 0 mls/hr IV.SIG BOLUS TERI Last Infusion: 12/15/17 14:38 Dose: Infused Sodium Chloride (Ns Inj) 1,000 mls @ 125 mls/hr IV.CONT .Q8H TERI Lactulose (Lactulose Liq) 30 ml PO DAILY PRN PRN Reason: SEVERE CONSITIPATION Losartan Potassium (Cozaar) 100 mg PO DAILY [facility] Metronidazole (Flagyl) 500 mg PO Q8HR [facility] Morphine Sulfate (Morphine Inj) 2 mg IV.PUSH Q4H PRN PRN Reason: PAIN SCALE 1 TO 10 Ondansetron HCl (Zofran Inj) 4 mg IV.PUSH Q6H PRN PRN Reason: NAUSEA OR VOMITING Pantoprazole Sodium (Protonix Inj) 40 mg IV.PUSH Q12H [facility] Pravastatin Sodium (Pravachol) 40 mg PO DAILY [facility] Senna/Docusate Sodium (Nettie-Colace) 1 tab PO BID [facility] Sennosides (Senokot) 17.2 mg PO Q12H PRN PRN Reason: Moderate Constipation Sodium Chloride (Ns Flush) 2 ml IV.FLUSH PRN PRN PRN Reason: FLUSH AFTER USING IV ACCESS <Mallory Hernandez - Last Filed: 12/15/17 17:24> Active Medications: Active Medications Acetaminophen (Tylenol) 650 mg PO Q4H PRN PRN Reason: Temp > 100.4 Al Hydroxide/Mg Hydroxide (Milk Of Magnesia Liq) 30 ml PO Q12H PRN PRN Reason: Mild Constipation Bisacodyl (Dulcolax Supp) 10 mg RECTAL DAILY PRN PRN Reason: SEVERE CONSITIPATION Ciprofloxacin HCl (Cipro) 500 mg PO Q12HR [facility] Sodium Chloride (Ns Inj) 500 mls @ 0 mls/hr IV.SIG BOLUS [facility] Last Infusion: 12/15/17 14:38 Dose: Infused Sodium Chloride (Ns Inj) 1,000 mls @ 125 mls/hr IV.CONT .Q8H [facility] Last Admin: 12/15/17 18:28 Dose: 125 mls/hr Lactulose (Lactulose Liq) 30 ml PO DAILY PRN PRN Reason: SEVERE CONSITIPATION Losartan Potassium (Cozaar) 100 mg PO DAILY [facility] Last Admin: 12/15/17 18:28 Dose: 100 mg Metronidazole (Flagyl) 500 mg PO Q8HR [facility] Morphine Sulfate (Morphine Inj) 2 mg IV.PUSH Q4H PRN PRN Reason: PAIN SCALE 1 TO 10 Ondansetron HCl (Zofran Inj) 4 mg IV.PUSH Q6H PRN PRN Reason: NAUSEA OR VOMITING Pantoprazole Sodium (Protonix Inj) 40 mg IV.PUSH Q12H [facility] Last Admin: 12/15/17 18:27 Dose: 40 mg Pravastatin Sodium (Pravachol) 40 mg PO DAILY [facility] Last Admin: 12/15/17 18:28 Dose: 40 mg Senna/Docusate Sodium (Nettie-Colace) 1 tab PO BID [facility] Sennosides (Senokot) 17.2 mg PO Q12H PRN PRN Reason: Moderate Constipation Sodium Chloride (Ns Flush) 2 ml IV.FLUSH PRN PRN PRN Reason: FLUSH AFTER USING IV ACCESS <Joanna Stanley - Last Filed: 12/15/17 19:17> Allergies Allergy/AdvReac Type Severity Reaction Status Date / Time No Known Allergies Allergy Verified 12/15/17 11:52 Home Medications Medication Instructions Recorded Confirmed Type losartan 100 mg PO DAILY 12/15/17 12/15/17 History lovastatin 40 mg PO DAILY 12/15/17 12/15/17 History Exam Vital signs: Vital Signs 12/15/17 11:34 12/15/17 13:37 12/15/17 13:46 Temperature 99.8 F H Pulse Rate 86 102 H Respiratory Rate 20 18 10 L Blood Pressure 172/78 H 154/72 H Pulse Oximetry 96 93 L 12/15/17 15:48 Temperature Pulse Rate 107 H Respiratory Rate 15 Blood Pressure 151/71 H Pulse Oximetry 96 Intake & Output 12/14/17 12/15/17 12/15/17 18:59 06:59 18:59 Intake Total 1500 / 1500 Balance 1500 / 1500 Weight 68.039 kg Intake: IV 1500 / 1500 NS Inj 1,000 ML @ Wide Open IV. 1000 / 1000 SIG BOLUS ONE Rx#:[id number] NS Inj 500 ML @ Wide Open IV. 500 / 500 SIG BOLUS TERI Rx#:[id number] - Constitutional mild distress - Routine HEENT Exam Head: Present: normocephalic - Routine Neck Exam Absent: tenderness, swelling - Routine Respiratory Exam Present: CTA bilaterally. Absent: accessory muscle use Comments: Patient has frequent cough that he states is normal for him since his cervical spine surgery in 2002 - Routine Cardiovascular Exam Present: RRR - Routine Abdominal Exam Present: soft, normoactive bowel sounds, tenderness. Absent: distended, guarding, firm - Routine Extremities Exam Present: full ROM. Absent: edema - Routine Skin Exam Present: dry, warm - Routine Neurological Exam Present: alert, oriented X3 <DavidMallory - Last Filed: 12/15/17 17:24> Vital signs: Vital Signs 12/15/17 11:34 12/15/17 13:37 12/15/17 13:46 Temperature 99.8 F H Pulse Rate 86 102 H Respiratory Rate 20 18 10 L Blood Pressure 172/78 H 154/72 H Pulse Oximetry 96 93 L 12/15/17 15:48 Temperature Pulse Rate 107 H Respiratory Rate 15 Blood Pressure 151/71 H Pulse Oximetry 96 Intake & Output 12/15/17 12/15/17 12/16/17 06:59 18:59 06:59 Intake Total 1500 / 1500 Balance 1500 / 1500 Weight 68.039 kg Intake: IV 1500 / 1500 NS Inj 1,000 ML @ Wide Open IV. 1000 / 1000 SIG BOLUS ONE Rx#:[id number] NS Inj 500 ML @ Wide Open IV. 500 / 500 SIG BOLUS TERI Rx#:[id number] Other: # Voids 0 Weight On Admission 68.039 kg <Joanna Stanley - Last Filed: 12/15/17 19:17> Results - Labs CBC & Chem 7: 12/15/17 11:46 12/15/17 11:46 Labs: Laboratory Results - last 24 hr 12/15/17 12/15/17 12/15/17 11:46 11:46 11:46 WBC 15.8 H RBC 5.00 Hgb 14.7 Hct 43.5 MCV 87.0 MCH 29.4 MCHC 33.8 RDW 13.5 Plt Count 170 MPV 9.1 Neut % (Auto) 91.9 H Lymph % (Auto) 4.2 L [place] % (Auto) 3.8 Eos % (Auto) 0.0 Baso % (Auto) 0.1 Neut # (Auto) 14.5 H Lymph # (Auto) 0.7 L [place] # (Auto) 0.6 Eos # (Auto) 0.0 Baso # (Auto) 0.0 WBC Differential . Differential Comment Auto diff final PT 11.4 INR 1.1 APTT 22.6 L Sodium 140 Potassium 4.3 Chloride 108 H Carbon Dioxide 23.5 Anion Gap 9 BUN 37 H Creatinine 1.47 H Estimated GFR 46 L Random Glucose 113 H Calcium 8.6 Magnesium 2.4 Total Bilirubin 1.3 H AST 17 ALT 21 Alkaline Phosphatase 154 H C-Reactive Protein 1.30 H Total Protein 7.6 Albumin 3.9 Lipase 69 L 12/15/17 11:46 WBC RBC Hgb Hct MCV MCH MCHC RDW Plt Count MPV Neut % (Auto) Lymph % (Auto) [place] % (Auto) Eos % (Auto) Baso % (Auto) Neut # (Auto) Lymph # (Auto) [place] # (Auto) Eos # (Auto) Baso # (Auto) WBC Differential Differential Comment PT INR APTT Sodium Potassium Chloride Carbon Dioxide Anion Gap BUN Creatinine Estimated GFR Random Glucose Calcium Magnesium Total Bilirubin AST ALT Alkaline Phosphatase C-Reactive Protein Cancelled Total Protein Albumin Lipase - Imaging Impressions Abdomen/Pelvis CT 12/15/17 11:39 CONCLUSION: 1. Multiple ventral hernias are noted as above. There is abnormal circumferential bowel wall thickening identified greatest at the transverse colon characteristic of colitis.This is quite prominent at the mid transverse colon and follow-up is recommended after appropriate clinical therapy to ensure no underlying mass is not present. 2. Thoracic and abdominal aortic aneurysms. Chest X-Ray 12/15/17 14:53 CONCLUSION: 1. Mild bibasilar atelectatic changes. 2. No acute infiltrate. <Mallory Hernandez - Last Filed: 12/15/17 17:24> - Labs CBC & Chem 7: 12/15/17 11:46 12/15/17 11:46 Labs: Laboratory Results - last 24 hr 12/15/17 12/15/17 12/15/17 11:46 11:46 11:46 WBC 15.8 H RBC 5.00 Hgb 14.7 Hct 43.5 MCV 87.0 MCH 29.4 MCHC 33.8 RDW 13.5 Plt Count 170 MPV 9.1 Neut % (Auto) 91.9 H Lymph % (Auto) 4.2 L [place] % (Auto) 3.8 Eos % (Auto) 0.0 Baso % (Auto) 0.1 Neut # (Auto) 14.5 H Lymph # (Auto) 0.7 L [place] # (Auto) 0.6 Eos # (Auto) 0.0 Baso # (Auto) 0.0 WBC Differential . Differential Comment Auto diff final PT 11.4 INR 1.1 APTT 22.6 L Sodium 140 Potassium 4.3 Chloride 108 H Carbon Dioxide 23.5 Anion Gap 9 BUN 37 H Creatinine 1.47 H Estimated GFR 46 L Random Glucose 113 H Calcium 8.6 Magnesium 2.4 Total Bilirubin 1.3 H AST 17 ALT 21 Alkaline Phosphatase 154 H C-Reactive Protein 1.30 H Total Protein 7.6 Albumin 3.9 Lipase 69 L 12/15/17 11:46 WBC RBC Hgb Hct MCV MCH MCHC RDW Plt Count MPV Neut % (Auto) Lymph % (Auto) [place] % (Auto) Eos % (Auto) Baso % (Auto) Neut # (Auto) Lymph # (Auto) [place] # (Auto) Eos # (Auto) Baso # (Auto) WBC Differential Differential Comment PT INR APTT Sodium Potassium Chloride Carbon Dioxide Anion Gap BUN Creatinine Estimated GFR Random Glucose Calcium Magnesium Total Bilirubin AST ALT Alkaline Phosphatase C-Reactive Protein Cancelled Total Protein Albumin Lipase - Imaging Impressions Abdomen/Pelvis CT 12/15/17 11:39 CONCLUSION: 1. Multiple ventral hernias are noted as above. There is abnormal circumferential bowel wall thickening identified greatest at the transverse colon characteristic of colitis.This is quite prominent at the mid transverse colon and follow-up is recommended after appropriate clinical therapy to ensure no underlying mass is not present. 2. Thoracic and abdominal aortic aneurysms. Chest X-Ray 12/15/17 14:53 CONCLUSION: 1. Mild bibasilar atelectatic changes. 2. No acute infiltrate. <Joanna Stanley - Last Filed: 12/15/17 19:17> Assessment and Plan - Plan Mr. Baird is an 82-year-old male patient who presented to the emergency room today at [facility] with report of pain across lower abdomen, nausea and vomiting onset yesterday a.m. 0500. Patient describes the pain as a cramping sensation and rates same at 7 out of 10 at this time. He denies that there are any aggravating or alleviating factors. He reports vomiting several times over the last 24 hours "black stuff". Of note, patient states that he takes 1 full strength aspirin 325 mg p.o. daily for his blood pressure. Patient denies hematochezia or melena. Patient states he has a history of liver artery stent placement performed in 2002 and has not had follow-up since. He denies any additional abdominal surgeries. Again, patient reports pain across lower abdomen, pointing to left lower quadrant stating "it is worse there ". Patient denies having any fever or chills. States last colonoscopy in 2002 where he recollects they found polyps that were benign. He reports having 2-3 hard brown bowel movements daily as a normality for him. He denies any noted bleeding. Patient denies ever having had an upper endoscopy. 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 He endorses dysphagia and denies odynophagia. Patient states he smokes 1 pack/day and denies any alcohol use. Patient denies any known family history of gastrointestinal disorders/diseases. (12/15) CT abdomen and pelvis done on admission revealed the following--> Multiple ventral hernias are noted as above.There is abnormal circumferential bowel wall thickening identified greatest at the transverse colon characteristic of colitis.This is quite prominent at the mid transverse colon and follow-up is recommended after appropriate clinical therapy to ensure no underlying mass is not present. Thoracic and abdominal aortic aneurysms. Our service has been consulted to evaluate patient's report of abdominal pain, colitis Colitis/abdominal pain CT abdomen and pelvis results as noted above. WBC 15.8 hemoglobin 14.7 hematocrit 43.3 platelet count 170 INR 1.1 BUN 37 creatinine 1.47 GFR 46 total bilirubin 1.3 AST 17 ALT 21 alk phos 154. Due to patient's noted renal function will proceed with ultrasound of the abdomen to evaluate mesenteric vessels. Will prep patient for EGD colonoscopy tomorrow to evaluate patient's report of dark emesis and lower abdominal pain. Plan -N.p.o. -Obtain consent for EGD colonoscopy -1 bottle of mag citrate/Dulcolax 4 tablets-as prep -Continue Cipro and Flagyl -Avoid aspirin/anticoagulants -Analgesics as per attending Aleah as needed nausea -Monitor for bleeding -Continue PPI -Supportive care -Further recommendations to follow based on patient's status and findings This patient has been seen by myself and Dr. Stanley and this note is written on her behalf - Attending Attestation Dr. Stanley <Mallory Hernandez - Last Filed: 12/15/17 17:24> - Attending Attestation seen, examined agree with above vascular surgery consult noted us mesenteric vessels if n, v insert ngt stool studies <Joanna Stanley - Last Filed: 12/15/17 19:17>
[2017-12-15] MEDS: Pantoprazole Inj 40 MG Vial IV.PUSH SCH (18:27)
[2017-12-15] MEDS: Sod Chloride 0.9% Inj 1,000 ML IV.CONT SCH (18:28)
[2017-12-15] MEDS: Ciprofloxacin 500 MG Tablet PO SCH (21:29)
[2017-12-15] MEDS: Acetaminophen 325 MG Tablet PO PRN (21:29)
[2017-12-15] MEDS: Senna/Docusate Sodium 8.6/50 MG Tablet PO SCH (21:30)
[2017-12-15] MEDS: metroNIDAZOLE 500 MG Tablet PO SCH (22:16)
--- NOTE | 2017-12-15 22:55 | MB ---
cc: Fiorella Easley MD DATE: 12/15/2017 CONSULTING PHYSICIAN: Fiorella Easley MD, vascular surgery. REASON FOR CONSULTATION: A thin thoracic aneurysm, abdominal aortic infrarenal aneurysm, and colitis with partial lysed bowel obstruction. HISTORY OF PRESENT ILLNESS: This 83-year-old man presented to the emergency room at [facility] today with cramping abdominal pain, which has been going on for about 2 days. The patient vomited several times in the last day and noted black stuff in his vomit. This patient did not have bowel movements for about 3 days. States that he goes to bathroom only about twice a week with laxatives, has had several episodes of diverticulitis and has known diverticulosis. States he had about 5 years ago colonoscopy. On the workup, he was found to have aortic aneurysms and therefore consult was placed. PAST MEDICAL HISTORY: Coronary artery disease, known diverticulitis attacks with chronic diverticulosis, hypertension, hyperlipidemia. PAST SURGICAL HISTORY: The biliary stent placements in 2002 and some sort of biliary surgery as patient had an obvious abdominal incision. SOCIAL HISTORY: The patient used to smoke, does not drink. 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 PHYSICAL EXAMINATION: GENERAL: An 83-year-old gentleman, awake, alert, and oriented. HEENT: Normocephalic. No trauma to the head. Pupils are equal and reactive. Extraocular muscles intact. NECK: Supple. Bilateral carotid pulses and bilateral faint bruits. CHEST: Clear. Bilateral breath sounds, decreased over both lungs rice consistent with some degree of chronic obstructive pulmonary disease. HEART: Regular rhythm. The patient is a normotensive. ABDOMEN: Soft, distended, tender in the left lower quadrant and pelvis with some rebound, but no guarding. Midline scar from previous surgeries, the patient states some sort of biliary procedure. No masses noted on palpation, but the patient definitely is tender in the left lower quadrant and some firmness is present, which is consistent with probably chronic diverticulitis and firm bowel there. BACK: Normal. EXTREMITIES: The patient has bilateral femoral, popliteal, dorsalis pedis, and posterior tibial pulses on Doppler and then a weak femoral and dorsalis pedis on palpation. No signs of acute vascular deficit. NEUROLOGIC: The patient is grossly intact. IMPRESSION AND RECOMMENDATIONS: I reviewed laboratory notes and procedure. This patient has several issues: 1. The patient has an ascending aortic aneurysm measuring about 4 cm in diameter. He does not have significant aortic insufficiency from listening to his chest and the patient would not be a candidate for repair of this at this age unless it was an absolute emergency. As far abdominal aortic aneurysm is concerned, this is an infrarenal lesion measuring about 3.8 cm and should be only followed. If the aneurysm would enlarge rapidly or reach a size of about 5.5 cm, then endovascular repair would be amenable and a possible option. 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 Right now, this is not an issue. 2. As far as the colitis is concerned, this patient clearly has an area of thickened bowel from the distal descending colon to the sigmoid colon and then extensive diverticulosis in the sigmoid colon. I believe the patient has diverticulosis and on the top of that colitis, which narrowed down his bowel and that is why he is presenting with essentially partial large bowel obstruction from functional cause. With appropriate antibiotics, this should resolve and then the patient can be colonoscoped. Right now, he does not require any surgery; but, upon the colonoscopy, we will have to decide if the patient requires anything done. I will continue to follow the patient for the same. Thank you very much for the referral. CRITICAL CARE TIME: 38 minutes. MD VIRGIE Aldridge/lia , 10:01 PM , 10:13 PM
[2017-12-16] MEDS: Sod Chloride 0.9% Inj 1,000 ML IV.CONT SCH ×3 (01:06→15:21)
[2017-12-16] MEDS: Pantoprazole Inj 40 MG Vial IV.PUSH SCH ×2 (04:37→17:57)
[2017-12-16] MEDS: metroNIDAZOLE 500 MG Tablet PO SCH ×2 (05:27→14:25)
[2017-12-16 08:43] LABS: Baso % (Auto) 0.1 % (0.0-2.0); Eos % (Auto) 0.1 % (0.0-4.0); Hematocrit 43.7 % (39.0-51.0); Hemoglobin 14.2 gm/dL (13.0-17.0); Lymph # (Auto) 1.2 th/mm3 (1.0-4.8); Lymph % (Auto) 6.4 % (9.0-44.0); Mean Corpuscular HGB Conc 32.5 % (32.0-36.0); Mean Corpuscular Hemoglobin 28.6 pg (27.0-34.0); Mean Corpuscular Volume 87.8 fL (80.0-100.0); Mean Platelet Volume 9.5 fL (7.0-11.0); Mono # (Auto) 1.1 th/mm3 (0.0-0.9); Mono % (Auto) 6.3 % (0.0-8.0); Neut # (Auto) 15.8 th/mm3 (1.8-7.7); Neut % (Auto) 87.1 % (16.0-70.0); Platelet Count 149 th/mm3 (150-450); Red Blood Count 4.97 mil/mm3 (4.50-5.90); Red Cell Distribution Width 13.7 % (11.6-17.2); White Blood Count 18.1 th/mm3 (4.0-11.0)
[2017-12-16 09:02] LABS: Alanine Aminotransferase 29 U/L (12-78); Albumin 3.1 g/dL (3.4-5.0); Alkaline Phosphatase 153 U/L (45-117); Anion Gap 10 meq/L (5-15); Aspartate Aminotransferase 115 U/L (15-37); Blood Urea Nitrogen 44 mg/dL (7-18); Calcium 7.9 mg/dL (8.5-10.1); Carbon Dioxide 17.7 meq/L (21.0-32.0); Chloride 113 meq/L (98-107); Glomerular Filtration Rate 41 mL/min (>89); Glucose,Random 101 mg/dL (74-106); Potassium 4.3 meq/L (3.5-5.1); Sodium 141 meq/L (136-145); Total Protein 6.8 g/dL (6.4-8.2)
[2017-12-16] MEDS ORDERED: Morphine Inj 4 MG/ML Vial IV.PUSH ONE (09:08)
--- NOTE | 2017-12-16 09:09 | P.PN ---
Subjective Interval history: Follow-up for colitis. Patient reports continued intractable sharp stabbing 10/ 10 left lower quadrant abdominal pain with radiation across his lower abdomen. Reports nausea with episodes of vomiting overnight, none since 7 AM this morning. Denies fevers or chills. He reports small amount of dark stools, denies any bright red blood. Denies any other medical complaints at this time. Physical Exam Vital signs: Vital Signs 12/15/17 11:34 12/15/17 13:37 12/15/17 13:46 Temperature 99.8 F H Pulse Rate 86 102 H Respiratory Rate 20 18 10 L Blood Pressure 172/78 H 154/72 H Pulse Oximetry 96 93 L 12/15/17 15:48 12/15/17 20:00 12/16/17 00:00 Temperature 98.0 F 98.5 F Pulse Rate 107 H 100 H 89 Respiratory Rate 15 19 19 Blood Pressure 151/71 H 121/70 115/58 L Pulse Oximetry 96 90 L 12/16/17 04:00 12/16/17 08:00 Temperature 98.4 F 98.2 F Pulse Rate 89 82 Respiratory Rate 18 16 Blood Pressure 123/60 129/62 Pulse Oximetry 92 L 93 L Intake & Output 12/15/17 12/16/17 12/16/17 18:59 06:59 18:59 Intake Total 1500 / 1500 1000 / 1000 Output Total 250 / 250 Balance 1500 / 1500 750 / 750 Weight 68.039 kg 73.9 kg Intake: IV 1500 / 1500 1000 / 1000 NS Inj 1,000 ML @ 125 mls/hr IV 1000 / 1000 .CONT .Q8H TERI Rx#:[id number] NS Inj 1,000 ML @ Wide Open IV. 1000 / 1000 SIG BOLUS ONE Rx#:[id number] NS Inj 500 ML @ Wide Open IV. 500 / 500 SIG BOLUS TERI Rx#:[id number] Output: Urine 250 / 250 Other: # Voids 0 Weight On Admission 68.039 kg Narrative: GENERAL: Well-nourished, well-developed elderly male patient in [facility]. SKIN: Warm and dry. No rash. HEENT: Normocephalic. Atraumatic. Pupils equal and round. Mucous membranes pink and moist. CARDIOVASCULAR: Regular rate and rhythm. No murmur appreciated. RESPIRATORY: No accessory muscle use. Clear to auscultation. Breath sounds equal bilaterally. GASTROINTESTINAL: Abdomen soft, nondistended, diffuse lower abdominal tenderness to palpation, worse at LLQ. Normoactive bowel sounds x4. MUSCULOSKELETAL: No obvious deformities. Extremities without clubbing, cyanosis , or edema. NEUROLOGICAL: Awake and alert. No obvious cranial nerve deficits. Motor grossly within normal limits. Moving all extremities spontaneously. Normal speech. PSYCHIATRIC: Appropriate mood and affect; insight and judgment normal. Results - Labs CBC & Chem 7: 12/16/17 07:00 12/16/17 07:20 Laboratory Results - last 24 hr 12/15/17 12/15/17 12/15/17 11:46 11:46 11:46 WBC 15.8 H RBC 5.00 Hgb 14.7 Hct 43.5 MCV 87.0 MCH 29.4 MCHC 33.8 RDW 13.5 Plt Count 170 MPV 9.1 Neut % (Auto) 91.9 H Lymph % (Auto) 4.2 L [place] % (Auto) 3.8 Eos % (Auto) 0.0 Baso % (Auto) 0.1 Neut # (Auto) 14.5 H Lymph # (Auto) 0.7 L [place] # (Auto) 0.6 Eos # (Auto) 0.0 Baso # (Auto) 0.0 WBC Differential . Differential Comment Auto diff final PT 11.4 INR 1.1 APTT 22.6 L Sodium 140 Potassium 4.3 Chloride 108 H Carbon Dioxide 23.5 Anion Gap 9 BUN 37 H Creatinine 1.47 H Estimated GFR 46 L Random Glucose 113 H Calcium 8.6 Magnesium 2.4 Total Bilirubin 1.3 H AST 17 ALT 21 Alkaline Phosphatase 154 H C-Reactive Protein 1.30 H Total Protein 7.6 Albumin 3.9 Lipase 69 L 12/15/17 12/16/17 12/16/17 11:46 07:00 07:20 WBC 18.1 H RBC 4.97 Hgb 14.2 Hct 43.7 MCV 87.8 MCH 28.6 MCHC 32.5 RDW 13.7 Plt Count 149 L MPV 9.5 Neut % (Auto) 87.1 H Lymph % (Auto) 6.4 L [place] % (Auto) 6.3 Eos % (Auto) 0.1 Baso % (Auto) 0.1 Neut # (Auto) 15.8 H Lymph # (Auto) 1.2 [place] # (Auto) 1.1 H Eos # (Auto) 0.0 Baso # (Auto) 0.0 WBC Differential . Differential Comment Auto diff final PT INR APTT Sodium 141 Potassium 4.3 Chloride 113 H Carbon Dioxide 17.7 L Anion Gap 10 BUN 44 H Creatinine 1.62 H Estimated GFR 41 L Random Glucose 101 Calcium 7.9 L Magnesium Total Bilirubin 1.7 H AST 115 H ALT 29 Alkaline Phosphatase 153 H C-Reactive Protein Cancelled Total Protein 6.8 D Albumin 3.1 L D Lipase - Imaging Impressions Abdomen/Pelvis CT 12/15/17 11:39 CONCLUSION: 1. Multiple ventral hernias are noted as above. There is abnormal circumferential bowel wall thickening identified greatest at the transverse colon characteristic of colitis.This is quite prominent at the mid transverse colon and follow-up is recommended after appropriate clinical therapy to ensure no underlying mass is not present. 2. Thoracic and abdominal aortic aneurysms. Chest X-Ray 12/15/17 14:53 CONCLUSION: 1. Mild bibasilar atelectatic changes. 2. No acute infiltrate. Assessment and Plan - Assessment (1) HTN (hypertension) Code(s): I10 - Essential (primary) hypertension Status: Chronic (2) Acute kidney failure Code(s): N17.9 - Acute kidney failure, unspecified Status: Acute (3) AAA (abdominal aortic aneurysm) Code(s): I71.4 - Abdominal aortic aneurysm, without rupture Status: Chronic (4) Colitis Code(s): K52.9 - Noninfective gastroenteritis and colitis, unspecified Status : Acute (5) Leukocytosis Code(s): D72.829 - Elevated white blood cell count, unspecified Status: Acute - Plan 82-year-old male with history of CAD, HTN, HLD, diverticulitis, presents with a 2-day history of lower abdominal pain, nausea, and vomiting. Sepsis with acute colitis: Patient symptomatic with abdominal pain, nausea/ vomiting. Meets sepsis criteria with leukocytosis WBC 18.1K, tachycardia HR 107 , and suspected sourcecolitis. -CT abdomen/pelvis reviewed, shows abnormal circumferential bowel wall thickening identified greatest at the transverse colon characteristic of colitis -Check stool studies to rule out infectious source -On antibiotics with IV Cipro/Flagyl -Blood cultures with NGTD -Continue PPI -Supportive treatment with IVF, antiemetics, and pain control with IV morphine as needed -Consult GI, plans for EGD/colonoscopy -Check lactic acid Thoracic/abdominal aortic aneurysms: Seen on CT abdomen/pelvis upon admission -CT showed Dilatation of the descending thoracic aorta up to 4.2 cm, as well as abdominal aortic aneurysm measuring 4.3 x 4.6 cm in AP transverse dimension on image 40 at the level of the renal arteries, and 3.4 x 3.7 cm on image 48 at the infrarenal abdominal aorta. -Consulted vascular surgery, appreciate recommendations LILLI: Creatinine 1.62, suspect prerenal secondary to dehydration -Continue IV fluid hydration -Avoid nephrotoxins -Monitor BMP Hypertension/Hyperlipidemia: chronic -continue patient's losartan and statin Tobacco Use: chronic -counseled on cessation DVT Prophylaxis: teds/SCDs; avoid chemical prophylaxis with upcoming procedure and concern for GIB
[2017-12-16] MEDS: Ciprofloxacin 500 MG Tablet PO SCH (09:36)
[2017-12-16] MEDS: Senna/Docusate Sodium 8.6/50 MG Tablet PO SCH ×2 (09:36→21:06)
[2017-12-16 15:54] LABS: Carbon Dioxide 24.6 meq/L (21.0-32.0); Potassium 4.6 meq/L (3.5-5.1)
[2017-12-16] MEDS: Ciprofloxacin 400 MG/200 ML 400 MG/200 ML PIGGYBACK IV.SIG SCH (21:06)
[2017-12-16] MEDS: Acetaminophen 325 MG Tablet PO PRN (21:06)
--- NOTE | 2017-12-16 21:16 | US ---
EXAM DATE: 12/16/2017 12:00 AM EDT AGE/SEX: 82 years / Male INDICATIONS: Mesenteric ischemia. CLINICAL DATA: This is the patient's initial encounter. Patient reports that signs and symptoms have been present for 1 day and indicates a pain score of 0/10. MEDICAL/SURGICAL HISTORY: . Coronary artery disease. Diverticulitis. Hyperlipidemia. Hyperte nsion. . Biliary stent insertion. COMPARISON: [facility] [place]BDOMEN & PELVIS W CONTRAST, 12/15/2017. . FINDINGS: Unfortunately overlying bowel gas prevents adequate evaluation of the abdominal aorta or aortic branc hes including the superior mesenteric artery. CONCLUSION: 1. Nondiagnostic exam. Overlying bowel gas precludes evaluation of aorta and branches. Electronically signed by: Kalyan Anaya MD 12/16/2017 9:14 PM EDT
[2017-12-17] MEDS: Sod Chloride 0.9% Inj 1,000 ML IV.CONT SCH ×3 (00:22→12:38)
[2017-12-17] MEDS: Pantoprazole Inj 40 MG Vial IV.PUSH SCH ×2 (04:28→16:24)
[2017-12-17] MEDS: Morphine Sulfate Inj 2 MG/ML Vial IV.PUSH PRN ×2 (04:40→08:41)
[2017-12-17] MEDS: Ciprofloxacin 400 MG/200 ML 400 MG/200 ML PIGGYBACK IV.SIG SCH ×2 (08:41→20:41)
[2017-12-17] MEDS: Senna/Docusate Sodium 8.6/50 MG Tablet PO SCH ×2 (08:41→20:41)
--- NOTE | 2017-12-17 09:33 | P.PN ---
Subjective Interval history: Follow-up for colitis. The patient reports he still has not had a bowel movement in 5 days, despite bowel prep ordered by GI team. He states prior to this, he was having very hard small stools. He reports continued diffuse lower abdominal pain. Denies fevers or chills. He reports occasional nausea, but no vomiting. He has no other medical complaints at this time. Physical Exam Vital signs: Vital Signs 12/16/17 12:00 12/16/17 16:00 12/16/17 19:52 Temperature 99.2 F 99.0 F 99.8 F H Pulse Rate 88 91 H 90 Respiratory Rate 16 16 19 Blood Pressure 142/63 H 143/72 H 132/59 L Pulse Oximetry 88 L 92 L 92 L 12/16/17 23:51 12/17/17 03:36 12/17/17 08:00 Temperature 98.1 F 98.2 F 98.9 F Pulse Rate 85 91 H 96 H Respiratory Rate 18 18 16 Blood Pressure 131/60 165/74 H 125/59 L Pulse Oximetry 90 L 91 L 90 L Intake & Output 12/16/17 12/17/17 12/17/17 18:59 06:59 18:59 Intake Total 1000 / 1000 1400 / 1400 700 / 700 Balance 1000 / 1000 1400 / 1400 700 / 700 Weight 74 kg Intake: IV 1000 / 1000 1400 / 1400 700 / 700 NS Inj 1,000 ML @ 125 mls/hr IV 1000 / 1000 1000 / 1000 700 / 700 .CONT .Q8H TERI Rx#:[id number] Cipro 400 MG/200 ML Inj 400 mg 200 / 200 In 200 ml @ 200 mls/hr IV.SIG Q12H TERI Rx#:[id number] Flagyl 500 MG Inj 100 ML @ 100 200 / 200 mls/hr IV.SIG Q8H TERI Rx#: [id number] Other: # Voids 1 1 Narrative: GENERAL: Well-nourished, well-developed elderly male patient in [facility]. SKIN: Warm and dry. No rash. HEENT: Normocephalic. Atraumatic. Pupils equal and round. Mucous membranes pink and moist. CARDIOVASCULAR: Regular rate and rhythm. No murmur appreciated. RESPIRATORY: No accessory muscle use. Clear to auscultation, although slightly diminished at bilateral bases. Breath sounds equal bilaterally. GASTROINTESTINAL: Abdomen soft, nondistended, diffuse lower abdominal tenderness to palpation, worse at LLQ. Normoactive bowel sounds x4. MUSCULOSKELETAL: No obvious deformities. Extremities without clubbing, cyanosis , or edema. NEUROLOGICAL: Awake and alert. No obvious cranial nerve deficits. Motor grossly within normal limits. Moving all extremities spontaneously. Normal speech. PSYCHIATRIC: Appropriate mood and affect; insight and judgment normal. Results - Labs CBC & Chem 7: 12/17/17 09:25 12/17/17 09:25 Laboratory Results - last 24 hr 12/16/17 12/16/17 15:16 15:16 Sodium 141 Potassium 4.6 Chloride 111 H Carbon Dioxide 24.6 Anion Gap 5 BUN 46 H Creatinine 1.63 H Estimated GFR 41 L Random Glucose 116 H Lactic Acid 1.7 Calcium 8.0 L Microbiology 12/15/17 16:55 Blood - Peripheral Aerobic Blood Culture - Preliminary No growth in 1 day 12/15/17 16:55 Blood - Peripheral Anaerobic Blood Culture - Preliminary No growth in 1 day 12/15/17 16:50 Blood - Peripheral Aerobic Blood Culture - Preliminary No growth in 1 day 12/15/17 16:50 Blood - Peripheral Anaerobic Blood Culture - Preliminary No growth in 1 day - Imaging Impressions Abdomen/Pelvis CT 12/15/17 11:39 CONCLUSION: 1. Multiple ventral hernias are noted as above. There is abnormal circumferential bowel wall thickening identified greatest at the transverse colon characteristic of colitis.This is quite prominent at the mid transverse colon and follow-up is recommended after appropriate clinical therapy to ensure no underlying mass is not present. 2. Thoracic and abdominal aortic aneurysms. Chest X-Ray 12/15/17 14:53 CONCLUSION: 1. Mild bibasilar atelectatic changes. 2. No acute infiltrate. Abdomen Ultrasound 12/16/17 00:00 CONCLUSION: 1. Nondiagnostic exam. Overlying bowel gas precludes evaluation of aorta and branches. Chest X-Ray 12/17/17 15:38 CONCLUSION: 1. Worsening left lower lung zone airspace disease with questionable trace pleural effusion. 2. Stable right lower lung zone mild airspace disease, presumably atelectasis. Assessment and Plan - Assessment (1) HTN (hypertension) Code(s): I10 - Essential (primary) hypertension Status: Chronic (2) Acute kidney failure Code(s): N17.9 - Acute kidney failure, unspecified Status: Acute (3) AAA (abdominal aortic aneurysm) Code(s): I71.4 - Abdominal aortic aneurysm, without rupture Status: Chronic (4) Colitis Code(s): K52.9 - Noninfective gastroenteritis and colitis, unspecified Status : Acute (5) Leukocytosis Code(s): D72.829 - Elevated white blood cell count, unspecified Status: Acute - Plan 82-year-old male with history of CAD, HTN, HLD, diverticulitis, presents with a 2-day history of lower abdominal pain, nausea, and vomiting. Sepsis with acute colitis: Patient symptomatic with abdominal pain, nausea/ vomiting. Meets sepsis criteria with leukocytosis WBC 18.1K, tachycardia HR 107 , and suspected sourcecolitis. -CT abdomen/pelvis reviewed, shows abnormal circumferential bowel wall thickening identified greatest at the transverse colon characteristic of colitis -Check stool studies to rule out infectious source -On antibiotics with IV Cipro/Flagyl -Blood cultures with NGTD -lactic acid wnl -Continue PPI -Supportive treatment with IVF, antiemetics, and pain control with IV morphine as needed -Consult GI, plans for EGD/colonoscopy however patient still has not had a stool despite bowel prep, appreciate GI recommendations Acute Hypoxia: patient with O2 sat down to 85% today 12/17 -checking stat repeat CXR -possible fluid overload from IVF, will hold, and give IV Lasix 40mg x1 now -give duoneb x1now and q4h prn -incentive spirometer Thoracic/abdominal aortic aneurysms: Seen on CT abdomen/pelvis upon admission -CT showed Dilatation of the descending thoracic aorta up to 4.2 cm, as well as abdominal aortic aneurysm measuring 4.3 x 4.6 cm in AP transverse dimension on image 40 at the level of the renal arteries, and 3.4 x 3.7 cm on image 48 at the infrarenal abdominal aorta. -Consulted vascular surgery, appreciate recommendations LILLI: Creatinine 1.62, suspect prerenal secondary to dehydration -Continue IV fluid hydration -Avoid nephrotoxins -Monitor BMP, improving Cr 1.36 -Check UA Hypertension/Hyperlipidemia: chronic -continue patient's losartan and statin Tobacco Use: chronic -counseled on cessation DVT Prophylaxis: teds/SCDs; avoid chemical prophylaxis with upcoming procedure and concern for GIB I spent 35 minutes [id number] with the patient or on the dumas discussing the patient's disposition, prognosis, and plan of care with his caregivers. Over half the time spent was devoted to counseling the patient regarding placement in coordinating care with caregivers and case management
[2017-12-17 10:03] LABS: Baso % (Auto) 0.1 % (0.0-2.0); Hematocrit 39.5 % (39.0-51.0); Hemoglobin 12.7 gm/dL (13.0-17.0); Lymph # (Auto) 0.5 th/mm3 (1.0-4.8); Lymph % (Auto) 3.3 % (9.0-44.0); Mean Corpuscular HGB Conc 32.2 % (32.0-36.0); Mean Corpuscular Hemoglobin 28.1 pg (27.0-34.0); Mean Corpuscular Volume 87.3 fL (80.0-100.0); Mean Platelet Volume 9.4 fL (7.0-11.0); Mono # (Auto) 0.9 th/mm3 (0.0-0.9); Mono % (Auto) 6.1 % (0.0-8.0); Neut # (Auto) 13.9 th/mm3 (1.8-7.7); Neut % (Auto) 90.5 % (16.0-70.0); Platelet Count 150 th/mm3 (150-450); Red Blood Count 4.52 mil/mm3 (4.50-5.90); Red Cell Distribution Width 13.7 % (11.6-17.2); White Blood Count 15.4 th/mm3 (4.0-11.0)
[2017-12-17 10:24] LABS: Calcium 7.8 mg/dL (8.5-10.1); Carbon Dioxide 22.9 meq/L (21.0-32.0)
[2017-12-17 11:12] LABS: Lymphocytes 8 % (9-44); Monocytes 2 % (0-8)
[2017-12-17 11:13] LABS: Platelet Estimate Normal (Normal); Platelet Morphology Normal (Normal); RBC Morphology Normal (Normal)
[2017-12-17] MEDS ORDERED: Methylnaltrexone Inj 12 MG/0.6 ML Vial SQ ONE (12:00)
--- NOTE | 2017-12-17 12:04 | P.PNGI ---
Subjective Interval history: Patient resting in the bed appears weakened and fatigued but answers simple questions Questionable mild confusion, discussed with patient again the need for colonoscopy in the prep that needs to be done today denies any nausea vomiting or abdominal pain from the Physical Exam Vital signs: Vital Signs 12/16/17 12:00 12/16/17 16:00 12/16/17 19:52 Temperature 99.2 F 99.0 F 99.8 F H Pulse Rate 88 91 H 90 Respiratory Rate 16 16 19 Blood Pressure 142/63 H 143/72 H 132/59 L Pulse Oximetry 88 L 92 L 92 L 12/16/17 23:51 12/17/17 03:36 12/17/17 08:00 Temperature 98.1 F 98.2 F 98.9 F Pulse Rate 85 91 H 96 H Respiratory Rate 18 18 16 Blood Pressure 131/60 165/74 H 125/59 L Pulse Oximetry 90 L 91 L 90 L Intake & Output 12/16/17 12/17/17 12/17/17 18:59 06:59 18:59 Intake Total 1000 / 1000 1400 / 1400 900 / 900 Balance 1000 / 1000 1400 / 1400 900 / 900 Weight 74 kg Intake: IV 1000 / 1000 1400 / 1400 900 / 900 NS Inj 1,000 ML @ 125 mls/hr IV 1000 / 1000 1000 / 1000 700 / 700 .CONT .Q8H TERI Rx#:[id number] Cipro 400 MG/200 ML Inj 400 mg 200 / 200 200 / 200 In 200 ml @ 200 mls/hr IV.SIG Q12H TERI Rx#:[id number] Flagyl 500 MG Inj 100 ML @ 100 200 / 200 mls/hr IV.SIG Q8H TERI Rx#: [id number] Other: # Voids 1 1 - Constitutional obese, cachectic, disheveled, cooperative - Routine HEENT Exam ENT: Present: mucous membranes dry (Pale,) - Routine Respiratory Exam Present: accessory muscle use (No obvious shortness of breath at rest) - Routine Cardiovascular Exam Present: S1, S2 - Routine Abdominal Exam Present: soft, normoactive bowel sounds (Left lower quadrant discomfort off and on) Results - Labs CBC & Chem 7: 12/17/17 09:25 12/17/17 09:25 Laboratory Results - last 24 hr 12/16/17 12/16/17 12/17/17 15:16 15:16 09:25 WBC 15.4 H RBC 4.52 Hgb 12.7 L Hct 39.5 MCV 87.3 MCH 28.1 MCHC 32.2 RDW 13.7 Plt Count 150 MPV 9.4 Prelim Diff (Auto) Slide review pending Neut % (Auto) 90.5 H Lymph % (Auto) 3.3 L [place] % (Auto) 6.1 Eos % (Auto) 0.0 Baso % (Auto) 0.1 Neut # (Auto) 13.9 H Lymph # (Auto) 0.5 L [place] # (Auto) 0.9 Eos # (Auto) 0.0 Baso # (Auto) 0.0 WBC Differential Manual diff final Seg Neuts % (Manual) 53 Band Neuts % (Manual) 37 H Lymphocytes % (Manual) 8 L Monocytes % (Manual) 2 Abs Neuts (Manual) 13.9 H Differential Comment . Platelet Estimate Normal Platelet Morphology Normal RBC Morphology Normal Sodium 141 Potassium 4.6 Chloride 111 H Carbon Dioxide 24.6 Anion Gap 5 BUN 46 H Creatinine 1.63 H Estimated GFR 41 L Random Glucose 116 H Lactic Acid 1.7 Calcium 8.0 L 12/17/17 09:25 WBC RBC Hgb Hct MCV MCH MCHC RDW Plt Count MPV Prelim Diff (Auto) Neut % (Auto) Lymph % (Auto) [place] % (Auto) Eos % (Auto) Baso % (Auto) Neut # (Auto) Lymph # (Auto) [place] # (Auto) Eos # (Auto) Baso # (Auto) WBC Differential Seg Neuts % (Manual) Band Neuts % (Manual) Lymphocytes % (Manual) Monocytes % (Manual) Abs Neuts (Manual) Differential Comment Platelet Estimate Platelet Morphology RBC Morphology Sodium 141 Potassium 4.0 Chloride 112 H Carbon Dioxide 22.9 Anion Gap 6 BUN 47 H Creatinine 1.36 H Estimated GFR 50 L Random Glucose 130 H Lactic Acid Calcium 7.8 L Microbiology 12/15/17 16:55 Blood - Peripheral Aerobic Blood Culture - Preliminary No growth in 2 days 12/15/17 16:55 Blood - Peripheral Anaerobic Blood Culture - Preliminary No growth in 2 days 12/15/17 16:50 Blood - Peripheral Aerobic Blood Culture - Preliminary No growth in 2 days 12/15/17 16:50 Blood - Peripheral Anaerobic Blood Culture - Preliminary No growth in 2 days - Imaging Impressions Abdomen Ultrasound 12/16/17 00:00 CONCLUSION: 1. Nondiagnostic exam. Overlying bowel gas precludes evaluation of aorta and branches. Assessment and Plan - Plan Mr. Baird is an 82-year-old male patient who presented to the emergency room today at [facility] ER with report of pain across lower abdomen, nausea and vomiting onset yesterday a.m. 0500. Patient describes the pain as a cramping sensation and rates same at 7 out of 10 at this time. He denies that there are any aggravating or alleviating factors. He reports vomiting several times over the last 24 hours "black stuff". Of note, patient states that he takes 1 full strength aspirin 325 mg p.o. daily for his blood pressure. Patient denies hematochezia or melena. Patient states he has a history of liver artery stent placement performed in 2002 and has not had follow-up since. He denies any additional abdominal surgeries. Again, patient reports pain across lower abdomen, pointing to left lower quadrant stating "it is worse there ". Patient denies having any fever or chills. States last colonoscopy in 2002 where he recollects they found polyps that were benign. He reports having 2-3 hard brown bowel movements daily as a normality for him. He denies any noted bleeding. Patient denies ever having had an upper endoscopy. 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 He endorses dysphagia and denies odynophagia. Patient states he smokes 1 pack/day and denies any alcohol use. Patient denies any known family history of gastrointestinal disorders/diseases. (12/15) CT abdomen and pelvis done on admission revealed the following--> Multiple ventral hernias are noted as above.There is abnormal circumferential bowel wall thickening identified greatest at the transverse colon characteristic of colitis.This is quite prominent at the mid transverse colon and follow-up is recommended after appropriate clinical therapy to ensure no underlying mass is not present. Thoracic and abdominal aortic aneurysms. Our service has been consulted to evaluate patient's report of abdominal pain, colitis Colitis/abdominal pain CT abdomen and pelvis results as noted above. WBC 15.8 hemoglobin 14.7 hematocrit 43.3 platelet count 170 INR 1.1 BUN 37 creatinine 1.47 GFR 46 total bilirubin 1.3 AST 17 ALT 21 alk phos 154. Due to patient's noted renal function will proceed with ultrasound of the abdomen to evaluate mesenteric vessels. Will prep patient for EGD colonoscopy tomorrow to evaluate patient's report of dark emesis and lower abdominal pain. 12/17/2017 initially attempted orders for EGD with dilation/colonoscopy but patient was unable to prep adequately. Patient does have some generalized weakness and fatigue and questionable chronic dementia. But does answer simple questions and discussed with him again the need to prep for colonoscopy. Currently patient has some left lower quadrant pain and cramping off and on which is probably related to his colitis. Currently her maintained on Cipro and Flagyl. Hemoglobin 12.7, WBC count 15.4, leukocytosis could be related to patient's colitis. Abdominal ultrasound nondiagnostic. Currently patient denies any nausea vomiting or abdominal pain and is tolerating clear liquids without any choking episodes. Plan Diet clear liquids today Consent for EGD with dilation, /colonoscopy in am magnesium citrate X 2 bottles, Fleets enema this pm, may repeat if brown liquid return Continue Flagyl and Cipro Zofran Monitor labs Further recommendations to follow Patient was seen per myself and Dr. Reyes, note was written on his behalf
[2017-12-17] MEDS ORDERED: Magnesium Citrate Liq 300 ML Bottle PO ONE ×2 (14:00→17:44)
--- NOTE | 2017-12-17 15:53 | XR ---
EXAM DATE: 12/17/2017 3:38 PM EDT AGE/SEX: 82 years / Male INDICATIONS: Short of breath CLINICAL DATA: This is the patient's subsequent encounter. Patient reports that signs and symptoms h ave been present for 3 days and indicates a pain score of 0/10. MEDICAL/SURGICAL HISTORY: Congestive heart failure. . Coronary artery disease. Diverticulitis. Hyperlipidemia. Hypertension. . . Biliary stent insertion. COMPARISON: [facility] – [place], CHEST 1V SINGLE AP, 12/15/2017. . FINDINGS: Progression of airspace disease in the left lower lung zone with questionable trace effusion. Persist ent minimal right lower lung zone airspace disease. The cardiomediastinal contours are unremarkable. Osseous structures are intact. CONCLUSION: 1. Worsening left lower lung zone airspace disease with questionable trace pleural effusion. 2. Stable right lower lung zone mild airspace disease, presumably atelectasis. Electronically signed by: Edison Watters MD 12/17/2017 3:52 PM EDT
[2017-12-17 16:21] LABS: Amorphous Sediment,Urine Rare /hpf; Bacteria,Urine Occasional /hpf; Bilirubin,Urine Negative (Negative); Clarity,Urine Clear (Clear); Color,Urine Amber (Yellw/Straw); Glucose,Urine (UA) Negative (Negative); Leukocyte Esterase,Urine Negative (Negative); Mucus,Urine Few /lpf (Occasional); Nitrite,Urine Negative (Negative); Specific Gravity,Urine 1.032 (1.002-1.035); Squamous Epithelial Cell,Urine <1 /hpf (0-5)
[2017-12-17] MEDS ORDERED: Sod Phosphate/Sod Biphosphate (Adult) Enema 133 ML Bottle RECTAL ONE (17:43)
[2017-12-17] MEDS ORDERED: MethylPREDNISolone Sod Succinate Inj 125 MG/2 ML Vial IV.PUSH ONE (20:30)
[2017-12-17 21:26] LABS: ABG Base Excess -2.6 mmol/L (-2-2); ABG PCO2 31 mmHg (38-42); ABG PO2 53 mmHg (61-120)
[2017-12-18] MEDS: Morphine Sulfate Inj 2 MG/ML Vial IV.PUSH PRN (00:37)
[2017-12-18] MEDS ORDERED: Chlorhexidine Gluconate 2% 1 Pack (2 Cloths) TOPICAL ONE ×2 (05:17→10:21)
[2017-12-18] MEDS: Pantoprazole Inj 40 MG Vial IV.PUSH SCH ×2 (05:37→18:55)
[2017-12-18] MEDS ORDERED: Sodium Chlor 0.9% Inj 500 ML IV.SIG SCH ×2 (06:00→11:00)
[2017-12-18 08:13] LABS: Baso % (Auto) 0.1 % (0.0-2.0); Hemoglobin 13.9 gm/dL (13.0-17.0); Lymph # (Auto) 0.5 th/mm3 (1.0-4.8); Lymph % (Auto) 3.6 % (9.0-44.0); Mean Corpuscular HGB Conc 33.2 % (32.0-36.0); Mean Corpuscular Hemoglobin 28.9 pg (27.0-34.0); Mean Platelet Volume 9.5 fL (7.0-11.0); Mono # (Auto) 0.7 th/mm3 (0.0-0.9); Mono % (Auto) 4.9 % (0.0-8.0); Neut # (Auto) 12.3 th/mm3 (1.8-7.7); Neut % (Auto) 91.4 % (16.0-70.0); Platelet Count 171 th/mm3 (150-450); Red Blood Count 4.82 mil/mm3 (4.50-5.90); Red Cell Distribution Width 13.3 % (11.6-17.2); White Blood Count 13.5 th/mm3 (4.0-11.0)
[2017-12-18 08:37] LABS: Alanine Aminotransferase 38 U/L (12-78); Anion Gap 7 meq/L (5-15); Aspartate Aminotransferase 94 U/L (15-37); Blood Urea Nitrogen 51 mg/dL (7-18); Calcium 8.6 mg/dL (8.5-10.1); Chloride 108 meq/L (98-107); Glomerular Filtration Rate 38 mL/min (>89); Glucose,Random 138 mg/dL (74-106); Sodium 143 meq/L (136-145)
[2017-12-18 08:40] LABS: Alkaline Phosphatase 151 U/L (45-117); Total Protein 6.8 g/dL (6.4-8.2)
[2017-12-18] MEDS ORDERED: Metoprolol Tartrate 25 MG Tablet PO ONE (10:21)
--- NOTE | 2017-12-18 10:30 | P.PN ---
Subjective Interval history: Follow-up for colitis. Patient reports multiple bowel movements overnight after bowel prep. He states his abdominal pain is "easing up a bit". Still reports some discomfort across his lower abdomen however improved. Denies fevers or chills. States his nausea and vomiting has also improved. He is going for EGD/colonoscopy today. Of note, patient had episodes of hypoxia down to 85% O2 sat yesterday. At the time, his lungs sounded wet, IV fluids were stopped, given IV Lasix, and now he has improved. The patient admits to feeling short of breath yesterday, however this is also improved. Patient denies any chest pain or productive cough. Denies any other medical complaints at this time. Physical Exam Vital signs: Vital Signs 12/17/17 12:00 12/17/17 15:33 12/17/17 16:18 Temperature 99.4 F 99.0 F Pulse Rate 144 H 102 H 102 H Respiratory Rate 18 18 18 Blood Pressure 144/67 H 154/68 H Pulse Oximetry 85 L 12/17/17 19:38 12/17/17 20:23 12/18/17 04:00 Temperature 99.0 F 98.6 F Pulse Rate 96 H 97 H 131 H Respiratory Rate 18 18 20 Blood Pressure 137/63 109/66 Pulse Oximetry 80 L 91 L 12/18/17 06:55 12/18/17 07:13 Temperature 97.9 F Pulse Rate 96 H Respiratory Rate 16 20 Blood Pressure 120/63 Pulse Oximetry Intake & Output 12/17/17 12/18/17 12/18/17 18:59 06:59 18:59 Intake Total 1300 / 1300 300 / 300 100 / 100 Output Total 250 / 250 Balance 1050 / 1050 300 / 300 100 / 100 Weight 68 kg Intake: IV 1300 / 1300 300 / 300 100 / 100 NS Inj 1,000 ML @ 125 mls/hr IV 1000 / 1000 .CONT .Q8H TERI Rx#:[id number] Cipro 400 MG/200 ML Inj 400 mg 200 / 200 200 / 200 In 200 ml @ 200 mls/hr IV.SIG Q12H TERI Rx#:[id number] Flagyl 500 MG Inj 100 ML @ 100 100 / 100 100 / 100 100 / 100 mls/hr IV.SIG Q8H TERI Rx#: [id number] Output: Urine 250 / 250 Other: # Voids 1 2 Date of Last Bowel Movement 12/17/17 12/18/17 # Bowel Movements 1 1 Narrative: GENERAL: Well-nourished, well-developed elderly male patient in NAD. SKIN: Warm and dry. No rash. HEENT: Normocephalic. Atraumatic. Pupils equal and round. Mucous membranes pink and moist. CARDIOVASCULAR: Regular rate and rhythm. No murmur appreciated. RESPIRATORY: No accessory muscle use. Clear to auscultation, although slightly diminished at bilateral bases with faint rales. Breath sounds equal bilaterally. GASTROINTESTINAL: Abdomen soft, nondistended, nontender today, improved. Normoactive bowel sounds x4. MUSCULOSKELETAL: No obvious deformities. Extremities without clubbing, cyanosis , or edema. NEUROLOGICAL: Awake and alert. No obvious cranial nerve deficits. Motor grossly within normal limits. Moving all extremities spontaneously. Normal speech. PSYCHIATRIC: Appropriate mood and affect; insight and judgment normal. Results - Labs CBC & Chem 7: 12/18/17 07:40 12/18/17 07:40 Laboratory Results - last 24 hr 12/17/17 12/17/17 12/17/17 09:25 15:40 15:50 WBC RBC Hgb Hct MCV MCH MCHC RDW Plt Count MPV Neut % (Auto) Lymph % (Auto) Lewis % (Auto) Eos % (Auto) Baso % (Auto) Neut # (Auto) Lymph # (Auto) Lewis # (Auto) Eos # (Auto) Baso # (Auto) WBC Differential Manual diff final Seg Neuts % (Manual) 53 Band Neuts % (Manual) 37 H Lymphocytes % (Manual) 8 L Monocytes % (Manual) 2 Abs Neuts (Manual) 13.9 H Differential Comment Platelet Estimate Normal Platelet Morphology Normal RBC Morphology Normal Puncture Site Patient Temperature O2 Saturation ABG pH ABG pCO2 ABG pO2 ABG HCO3 ABG O2 Content ABG Base Excess ABG Methemoglobin Donald Test Hemoglobin Carboxyhemoglobin O2 Delivery Device Liter Flow Critical Value Sodium Potassium Chloride Carbon Dioxide Anion Gap BUN Creatinine Estimated GFR Random Glucose Calcium Total Bilirubin AST ALT Alkaline Phosphatase B-Natriuretic Peptide 330 H Total Protein Albumin Urine Color Lo Urine Clarity Clear Urine pH 5.0 Ur Specific [place] 1.032 Urine Protein 30 H Urine Glucose (UA) Negative Urine Ketones Negative Urine Occult Blood Negative Urine Nitrate Negative Urine Bilirubin Negative Urine Urobilinogen 2.0 H Ur Leukocyte Esterase Negative Urine RBC Less than 1 Urine WBC 1 Ur Squamous Epith Cells <1 Amorphous Sediment Rare H Urine Bacteria Occasional H Urine Mucus Few H Micro UA Comment Culture not ind Ur Microscopic Review Not Reportable Urine Culture Comments Culture not ind 12/17/17 12/18/17 12/18/17 21:16 07:40 07:40 WBC 13.5 H RBC 4.82 Hgb 13.9 Hct 42.0 MCV 87.0 MCH 28.9 MCHC 33.2 RDW 13.3 Plt Count 171 MPV 9.5 Neut % (Auto) 91.4 H Lymph % (Auto) 3.6 L Lewis % (Auto) 4.9 Eos % (Auto) 0.0 Baso % (Auto) 0.1 Neut # (Auto) 12.3 H Lymph # (Auto) 0.5 L Lewis # (Auto) 0.7 Eos # (Auto) 0.0 Baso # (Auto) 0.0 WBC Differential . Seg Neuts % (Manual) Band Neuts % (Manual) Lymphocytes % (Manual) Monocytes % (Manual) Abs Neuts (Manual) Differential Comment Auto diff final Platelet Estimate Platelet Morphology RBC Morphology Puncture Site Right radial Patient Temperature 98.6 O2 Saturation 88 L* ABG pH 7.44 H ABG pCO2 31 L ABG pO2 53 L* ABG HCO3 21 L ABG O2 Content 15.9 ABG Base Excess -2.6 L ABG Methemoglobin 0.6 Donald Test Present Hemoglobin 12.8 Carboxyhemoglobin 1.4 O2 Delivery Device Nasal cannula Liter Flow 4.00 Critical Value Yes Sodium 143 Potassium 4.0 Chloride 108 H Carbon Dioxide 28.0 Anion Gap 7 BUN 51 H Creatinine 1.75 H Estimated GFR 38 L Random Glucose 138 H Calcium 8.6 D Total Bilirubin 0.9 AST 94 H ALT 38 Alkaline Phosphatase 151 H B-Natriuretic Peptide Total Protein 6.8 Albumin 3.0 L Urine Color Urine Clarity Urine pH Ur Specific [place] Urine Protein Urine Glucose (UA) Urine Ketones Urine Occult Blood Urine Nitrate Urine Bilirubin Urine Urobilinogen Ur Leukocyte Esterase Urine RBC Urine WBC Ur Squamous Epith Cells Amorphous Sediment Urine Bacteria Urine Mucus Micro UA Comment Ur Microscopic Review Urine Culture Comments Microbiology 12/17/17 18:30 Sputum - Oral Tracheal Aspirate Gram Stain - Final 12/15/17 16:55 Blood - Peripheral Aerobic Blood Culture - Preliminary No growth in 2 days 12/15/17 16:55 Blood - Peripheral Anaerobic Blood Culture - Preliminary No growth in 2 days 12/15/17 16:50 Blood - Peripheral Aerobic Blood Culture - Preliminary No growth in 2 days 12/15/17 16:50 Blood - Peripheral Anaerobic Blood Culture - Preliminary No growth in 2 days - Imaging Impressions Abdomen/Pelvis CT 12/15/17 11:39 CONCLUSION: 1. Multiple ventral hernias are noted as above. There is abnormal circumferential bowel wall thickening identified greatest at the transverse colon characteristic of colitis.This is quite prominent at the mid transverse colon and follow-up is recommended after appropriate clinical therapy to ensure no underlying mass is not present. 2. Thoracic and abdominal aortic aneurysms. Chest X-Ray 12/15/17 14:53 CONCLUSION: 1. Mild bibasilar atelectatic changes. 2. No acute infiltrate. Abdomen Ultrasound 12/16/17 00:00 CONCLUSION: 1. Nondiagnostic exam. Overlying bowel gas precludes evaluation of aorta and branches. Chest X-Ray 12/17/17 15:38 CONCLUSION: 1. Worsening left lower lung zone airspace disease with questionable trace pleural effusion. 2. Stable right lower lung zone mild airspace disease, presumably atelectasis. Assessment and Plan - Assessment (1) HTN (hypertension) Code(s): I10 - Essential (primary) hypertension Status: Chronic (2) Acute kidney failure Code(s): N17.9 - Acute kidney failure, unspecified Status: Acute (3) AAA (abdominal aortic aneurysm) Code(s): I71.4 - Abdominal aortic aneurysm, without rupture Status: Chronic (4) Colitis Code(s): K52.9 - Noninfective gastroenteritis and colitis, unspecified Status : Acute (5) Leukocytosis Code(s): D72.829 - Elevated white blood cell count, unspecified Status: Acute - Plan 82-year-old male with history of CAD, HTN, HLD, diverticulitis, presents with a 2-day history of lower abdominal pain, nausea, and vomiting. Sepsis with acute colitis: Patient symptomatic with abdominal pain, nausea/ vomiting. Meets sepsis criteria with leukocytosis WBC 18.1K, tachycardia HR 107 , and suspected sourcecolitis. -CT abdomen/pelvis reviewed, shows abnormal circumferential bowel wall thickening identified greatest at the transverse colon characteristic of colitis -Check stool studies to rule out infectious source -On antibiotics with IV Cipro/Flagyl -Blood cultures with NGTD -lactic acid wnl -Continue PPI -Supportive treatment with IVF, antiemetics, and pain control with IV morphine as needed -Consult GI, EGD/colonoscopy planned for today Acute Hypoxia: patient with O2 sat down to 85% on 12/17 -Repeat CXR shows worsening left lower lung zone airspace disease with questionable trace pleural effusion -BNP 330, possible fluid overload from IVF, holding IVF, and given IV Lasix 40mg x1 -give duoneb q4h prn -incentive spirometer -improved today, O2 sat 94% while on room air -continue to monitor and avoid fluid overload Thoracic/abdominal aortic aneurysms: Seen on CT abdomen/pelvis upon admission -CT showed Dilatation of the descending thoracic aorta up to 4.2 cm, as well as abdominal aortic aneurysm measuring 4.3 x 4.6 cm in AP transverse dimension on image 40 at the level of the renal arteries, and 3.4 x 3.7 cm on image 48 at the infrarenal abdominal aorta. -Consulted vascular surgery, appreciate recommendations, no surgical intervention at this time LILLI: Creatinine 1.62, suspect prerenal secondary to dehydration -Continue IV fluid hydration -Avoid nephrotoxins -Monitor BMP, improving Cr 1.36 -UA unremarkable Hypertension/Hyperlipidemia: chronic -continue patient's losartan and statin Tobacco Use: chronic -counseled on cessation DVT Prophylaxis: teds/SCDs; avoid chemical prophylaxis with upcoming procedure and concern for GIB Discharge Planning: Going for EGD/colonoscopy today. Further disposition to follow. PT consult pending.
--- NOTE | 2017-12-18 11:38 | P.PCN ---
Date of procedure: 12/18/17 Pre-op diagnosis: Dysphagia, abdominal pain, history of colon polyps, abnormal CT findings Procedure: PROCEDURE PERFORMED EGD with biopsy followed by an incomplete colonoscopy to the descending colon due to poor prep and active colitis with biopsy PROCEDURE: The procedure, risks and benefits were discussed with Patient/POA and informed consent was obtained. Anesthesia sedated Patient with Diprivan. Patient was placed in the left lateral decubitus position. EGD: The Pentax videoscope was introduced through the oropharynx and advanced to the second portion of the duodenum under direct visualization. Retroflexion was performed in the stomach. FINDINGS: The esophagus this appeared to be unremarkable and within normal limits random biopsies were taken from the distal esophagus for further evaluation of dysphagia The stomach there was a small hiatal hernia the patient was also noted to have patchy erythema in the antrum but no ulcerations no erosions no blood or bleeding antral biopsies were taken for further evaluation otherwise gastric mucosa was unremarkable with normal limits The duodenum this was normal Colonoscopy: The Pentax videoscope was introduced through the rectum and advanced to mid descending colon. Retroflexion was performed in the rectum. Colonic prep was poor and inadequate FINDINGS: The scope was advanced and unfortunately the prep was very poor and we were not able to get beyond the mid portion of the descending colon also noted was some erythema with some friability and a ulceration in the distal descending and sigmoid region biopsies were taken this is most suggestive of ischemic injury otherwise the evaluation was limited and incomplete no retroflexion was performed ESTIMATED BLOOD LOSS: None SPECIMENS REMOVED: Esophageal, gastric, and colon biopsies COMPLICATIONS: None IMPRESSION: Small hiatal hernia Incomplete colonoscopy due to poor prep and colitis Colitis probably ischemic in nature PLAN: Await biopsies Advance diet as tolerated Continue with current supportive care Repeat colonoscopy in 2-3 months If all is stable by tomorrow patient may be discharged from a GI standpoint Most likely cause of his dysphagia is probably underlying dysmotility of the oropharyngeal area Anesthesia: MAC Surgeon: Wyatt Wallace Condition: stable Disposition: floor
[2017-12-18] MEDS: Ciprofloxacin 400 MG/200 ML 400 MG/200 ML PIGGYBACK IV.SIG SCH ×2 (12:11→20:30)
[2017-12-18] MEDS: Senna/Docusate Sodium 8.6/50 MG Tablet PO SCH ×2 (12:11→20:34)
--- NOTE | 2017-12-18 15:06 | P.PNVS ---
Subjective Subjective/Hospital Course: 82-year-old gentleman admitted for unrelated reasons i.e. diverticulosis with partial LBO and on CT of the chest and abdomen has incidental findings of 4.2 cm in diameter ascending aortic aneurysm and about 4 cm in diameter infrarenal abdominal aortic aneurysm extending into the iliac arteries. At this point neither of these lesions is life-threatening or suspected of rapid expansion or rupture and therefore observation will be necessary in the future. Patient is clearly not a candidate for the ascending aortic aneurysm repair however the abdominal aortic aneurysm will be addressed if it grows over 5.5 cm in diameter in the future I will continue to follow patient also from the abdominal surgery point, as far as his diverticulosis and partial LBO is concerned and if then any surgical intervention is needed will address it myself. Full consult dictated Thanks J 12/18/2017 The patient has an ascending aortic aneurysm measuring about 4 cm in diameter. He does not have significant aortic insufficiency from listening to his chest and the patient would not be a candidate for repair of this at this age unless it was an absolute emergency. As far abdominal aortic aneurysm is concerned, this is an infrarenal lesion measuring about 3.8 cm and should be only followed. If the aneurysm would enlarge rapidly or reach a size of about 5.5 cm, then endovascular repair would be amenable and a possible option. 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 Right now, this is not an issue. Patient is much more immediate problem as far as the colitis is concerned, this patient clearly has an area of thickened bowel from the distal descending colon to the sigmoid colon and then extensive diverticulosis in the sigmoid colon. I believe the patient has diverticulosis and on the top of that ischemic colitis, which narrowed down his bowel and that is why he is presenting with essentially partial large bowel obstruction from functional cause. With appropriate antibiotics, this should resolve. Patient underwent today successful colonoscopy which reveals combination of ischemic colitis and ulcerations in the descending and sigmoid colon Based on patient's age and comorbidities we should allow this to resolve on its own and hopefully without any surgery Should patient worsen or have it again surgery may be the only option but this should be reserved for extreme situations only I will have patient follow-up in my office in about 2-3 weeks Objective Vital Signs / I&O: Vital Signs 12/17/17 15:33 12/17/17 16:18 12/17/17 19:38 Temperature 99.0 F 99.0 F Pulse Rate 102 H 102 H 96 H Respiratory Rate 18 18 18 Blood Pressure 154/68 H 137/63 Pulse Oximetry 85 L 80 L 12/17/17 20:23 12/18/17 04:00 12/18/17 06:55 Temperature 98.6 F Pulse Rate 97 H 131 H 96 H Respiratory Rate 18 20 16 Blood Pressure 109/66 Pulse Oximetry 91 L 12/18/17 07:13 12/18/17 11:43 12/18/17 12:00 Temperature 97.9 F 98.1 F 98.1 F Pulse Rate 82 85 Respiratory Rate 20 18 18 Blood Pressure 120/63 112/63 120/62 Pulse Oximetry 95 94 L Intake & Output 12/17/17 12/18/17 12/18/17 18:59 06:59 18:59 Intake Total 1300 / 1300 300 / 300 100 / 100 Output Total 250 / 250 Balance 1050 / 1050 300 / 300 100 / 100 Weight 68 kg Intake: IV 1300 / 1300 300 / 300 100 / 100 NS Inj 1,000 ML @ 125 mls/hr IV 1000 / 1000 .CONT .Q8H TERI Rx#:[id number] Cipro 400 MG/200 ML Inj 400 mg 200 / 200 200 / 200 In 200 ml @ 200 mls/hr IV.SIG Q12H TERI Rx#:[id number] Flagyl 500 MG Inj 100 ML @ 100 100 / 100 100 / 100 100 / 100 mls/hr IV.SIG Q8H TERI Rx#: [id number] Output: Urine 250 / 250 Other: # Voids 1 2 Date of Last Bowel Movement 12/17/17 12/18/17 # Bowel Movements 1 1 Laboratory Results - last 24 hr 12/17/17 12/17/17 12/17/17 15:40 15:50 21:16 WBC RBC Hgb Hct MCV MCH MCHC RDW Plt Count MPV Neut % (Auto) Lymph % (Auto) [place] % (Auto) Eos % (Auto) Baso % (Auto) Neut # (Auto) Lymph # (Auto) Moody # (Auto) Eos # (Auto) Baso # (Auto) WBC Differential Differential Comment Puncture Site Right radial Patient Temperature 98.6 O2 Saturation 88 L* ABG pH 7.44 H ABG pCO2 31 L ABG pO2 53 L* ABG HCO3 21 L ABG O2 Content 15.9 ABG Base Excess -2.6 L ABG Methemoglobin 0.6 Donald Test Present Hemoglobin 12.8 Carboxyhemoglobin 1.4 O2 Delivery Device Nasal cannula Liter Flow 4.00 Critical Value Yes Sodium Potassium Chloride Carbon Dioxide Anion Gap BUN Creatinine Estimated GFR Random Glucose Calcium Total Bilirubin AST ALT Alkaline Phosphatase B-Natriuretic Peptide 330 H Total Protein Albumin Urine Color Lo Urine Clarity Clear Urine pH 5.0 Ur Specific [place] 1.032 Urine Protein 30 H Urine Glucose (UA) Negative Urine Ketones Negative Urine Occult Blood Negative Urine Nitrate Negative Urine Bilirubin Negative Urine Urobilinogen 2.0 H Ur Leukocyte Esterase Negative Urine RBC Less than 1 Urine WBC 1 Ur Squamous Epith Cells <1 Amorphous Sediment Rare H Urine Bacteria Occasional H Urine Mucus Few H Micro UA Comment Culture not ind Ur Microscopic Review Not Reportable Urine Culture Comments Culture not ind 12/18/17 12/18/17 07:40 07:40 WBC 13.5 H RBC 4.82 Hgb 13.9 Hct 42.0 MCV 87.0 MCH 28.9 MCHC 33.2 RDW 13.3 Plt Count 171 MPV 9.5 Neut % (Auto) 91.4 H Lymph % (Auto) 3.6 L [place] % (Auto) 4.9 Eos % (Auto) 0.0 Baso % (Auto) 0.1 Neut # (Auto) 12.3 H Lymph # (Auto) 0.5 L [place] # (Auto) 0.7 Eos # (Auto) 0.0 Baso # (Auto) 0.0 WBC Differential . Differential Comment Auto diff final Puncture Site Patient Temperature O2 Saturation ABG pH ABG pCO2 ABG pO2 ABG HCO3 ABG O2 Content ABG Base Excess ABG Methemoglobin Donald Test Hemoglobin Carboxyhemoglobin O2 Delivery Device Liter Flow Critical Value Sodium 143 Potassium 4.0 Chloride 108 H Carbon Dioxide 28.0 Anion Gap 7 BUN 51 H Creatinine 1.75 H Estimated GFR 38 L Random Glucose 138 H Calcium 8.6 D Total Bilirubin 0.9 AST 94 H ALT 38 Alkaline Phosphatase 151 H B-Natriuretic Peptide Total Protein 6.8 Albumin 3.0 L Urine Color Urine Clarity Urine pH Ur Specific [place] Urine Protein Urine Glucose (UA) Urine Ketones Urine Occult Blood Urine Nitrate Urine Bilirubin Urine Urobilinogen Ur Leukocyte Esterase Urine RBC Urine WBC Ur Squamous Epith Cells Amorphous Sediment Urine Bacteria Urine Mucus Micro UA Comment Ur Microscopic Review Urine Culture Comments Microbiology 12/17/17 18:30 Gram Stain - Final Sputum - Oral Tracheal Aspirate Sputum Culture - Preliminary Heavy growth normal respiratory willow at 24 hours 12/15/17 16:55 Aerobic Blood Culture - Preliminary Blood - Peripheral No growth in 3 days Anaerobic Blood Culture - Preliminary No growth in 3 days 12/15/17 16:50 Aerobic Blood Culture - Preliminary Blood - Peripheral No growth in 3 days Anaerobic Blood Culture - Preliminary No growth in 3 days Impressions Abdomen Ultrasound 12/16/17 00:00 CONCLUSION: 1. Nondiagnostic exam. Overlying bowel gas precludes evaluation of aorta and branches. Chest X-Ray 12/17/17 15:38 CONCLUSION: 1. Worsening left lower lung zone airspace disease with questionable trace pleural effusion. 2. Stable right lower lung zone mild airspace disease, presumably atelectasis.
--- NOTE | 2017-12-18 17:01 | ECG ---
Date Performed: 12/18/2017 Time Performed: 07:59:13 PTAGE: 82 years EKG: Sinus rhythm POSSIBLE LEFT ATRIAL ENLARGEMENT RIGHT BUNDLE BRANCH BLOCK ST DEVIATION AND MODERATE T-WAVE ABNORMAL ITY, CONSIDER LATERAL ISCHEMIA ABNORMAL ECG PREVIOUS TRACING : 07/08/2014 19.17 Compared to previous tracing, there has been a significant increase in the heart rate. There has been an increase in the anterolateral ST segment depression, bu t the T-wave changes were previously noted. Thwe minimal ST elevation inferiorly is new. Clinical cor relation is recommended DOCTOR: Dalia Oropeza Interpretating Date/Time 12/18/2017 17:00:15
[2017-12-18] MEDS ORDERED: Melatonin 5 MG Tablet PO PRN (20:13)
[2017-12-19] MEDS: Pantoprazole Inj 40 MG Vial IV.PUSH SCH (05:24)
[2017-12-19] MEDS: Ciprofloxacin 400 MG/200 ML 400 MG/200 ML PIGGYBACK IV.SIG SCH (08:15)
[2017-12-19] MEDS: Senna/Docusate Sodium 8.6/50 MG Tablet PO SCH (08:15)
--- NOTE | 2017-12-19 09:05 | P.DS ---
Date of admission: 12/16/17 11:24 Primary care physician: Bree Ji MD Brief History from admission: This is an 82-year-old CM with PMHx of HTN, CAD, and HLD who presented to the ED for evaluation of abdominal pain, nausea and vomiting that started this morning at 5AM. Patient states he has not had a bowel movement in 2 days but states this is his baseline. Patient reports LLQ pain, 5/10, constant, aching, and nonradiating. Sx worsening with movement, alleviated with Morphine. Patient reports emesis has been dark brown, denies hematochezia or melena. Patient denies fever, chills, sick contacts, and diarrhea. Patient is a smoker. Hx of CAD on plavix started in 2011 but noncompliant with Plavix. Does not see Cards as OP. Patient denies use of NSAID's. Hx of biliary stent placement. Patient is a poor historian. DS: Diagnosis - Discharge Diagnosis (1) Colitis Status: Acute (2) HTN (hypertension) Status: Chronic (3) Acute kidney failure Status: Acute (4) AAA (abdominal aortic aneurysm) Status: Chronic (5) Leukocytosis Status: Acute DS: Medications - Discharge Medications Prescriptions: ciprofloxacin [Cipro] 500 mg PO Q12H #14 ml metronidazole [Flagyl] 500 mg PO TID #21 tab DS: Summary Hospital Course: 82-year-old male with history of CAD, HTN, HLD, diverticulitis, presents with a 2-day history of lower abdominal pain, nausea, and vomiting. Presented with sepsis criteria on admission source likely colitis. Patient had EGD and colonoscopy. Continue antibiotics at discharge. Cleared by consultants for discharge. The patient improved. His discharge stable condition to follow-up as outpatient with PCP and consultants. Sepsis on admission with acute colitis: Patient symptomatic with abdominal pain , nausea/vomiting. Meets sepsis criteria with leukocytosis WBC 18.1K, tachycardia HR 107, and suspected sourcecolitis on admission. Sepsis resolved. Continue p.o. biotics at discharge Seen by GI specialist: S/P EGD and colonoscopy: Small hiatal hernia Incomplete colonoscopy due to poor prep and colitis Colitis probably ischemic in nature Await biopsies to f/up as oP with GI for results Continue with current supportive care Repeat colonoscopy in 2-3 months If all is stable by tomorrow patient may be discharged from a GI standpoint Most likely cause of his dysphagia is probably underlying dysmotility of the oropharyngeal area The patient improved. Cleared by consultants for discharge to follow-up as outpatient with PCP and consultants -CT abdomen/pelvis reviewed, shows abnormal circumferential bowel wall thickening identified greatest at the transverse colon characteristic of colitis -Check stool studies to rule out infectious source -On antibiotics with IV Cipro/Flagyl -Blood cultures with NGTD -lactic acid wnl -Continue PPI -Supportive treatment with IVF, antiemetics, and pain control with IV morphine as needed -Consult GI, EGD/colonoscopy planned for today Acute Hypoxia: patient with O2 sat down to 85% on 12/17 -Repeat CXR shows worsening left lower lung zone airspace disease with questionable trace pleural effusion -BNP 330, possible fluid overload from IVF, holding IVF, and given IV Lasix 40mg x1 -give duoneb q4h prn -incentive spirometer -improved today, O2 sat 94% while on room air -continue to monitor and avoid fluid overload Thoracic/abdominal aortic aneurysms: Seen on CT abdomen/pelvis upon admission -CT showed Dilatation of the descending thoracic aorta up to 4.2 cm, as well as abdominal aortic aneurysm measuring 4.3 x 4.6 cm in AP transverse dimension on image 40 at the level of the renal arteries, and 3.4 x 3.7 cm on image 48 at the infrarenal abdominal aorta. -Consulted vascular surgery, appreciate recommendations, no surgical intervention at this time LILLI: Creatinine 1.62, suspect prerenal secondary to dehydration -Continue IV fluid hydration -Avoid nephrotoxins -Monitor BMP, improving Cr 1.36 -UA unremarkable Hypertension/Hyperlipidemia: chronic -continue patient's losartan and statin Tobacco Use: chronic -counseled on cessation DVT Prophylaxis: teds/SCDs; avoid chemical prophylaxis with upcoming procedure and concern for GIB Discharge Planning: s/p EGD/colonoscopy - Time Spent with Patient Total time spent providing and/or coordinating discharge services: Greater than 30 minutes - Quality: VTE Deep Vein Thrombosis/Pulmonary Embolism Present on Admission: No Exam Vital signs: Vital Signs 12/18/17 11:43 12/18/17 12:00 12/18/17 15:18 Temperature 98.1 F 98.1 F 98.1 F Pulse Rate 82 85 95 H Respiratory Rate 18 18 16 Blood Pressure 112/63 120/62 128/65 Pulse Oximetry 95 94 L 89 L 12/18/17 17:19 12/18/17 19:38 12/18/17 20:53 Temperature 96.3 F L Pulse Rate 90 93 H 58 L Respiratory Rate 18 18 Blood Pressure 118/59 L Pulse Oximetry 94 L Intake & Output 12/18/17 12/19/17 12/19/17 18:59 06:59 18:59 Intake Total 400 / 400 400 / 400 Balance 400 / 400 400 / 400 Weight 67.585 kg Intake: IV 400 / 400 400 / 400 Cipro 400 MG/200 ML Inj 400 mg 200 / 200 200 / 200 In 200 ml @ 200 mls/hr IV.SIG Q12H TERI Rx#:[id number] Flagyl 500 MG Inj 100 ML @ 100 200 / 200 200 / 200 mls/hr IV.SIG Q8H TERI Rx#: [id number] Other: # Voids 2 2 Date of Last Bowel Movement 12/18/17 # Bowel Movements 1 Narrative: GENERAL: Well-nourished, well-developed elderly male patient in [facility]. SKIN: Warm and dry. No rash. HEENT: Normocephalic. Atraumatic. Pupils equal and round. Mucous membranes pink and moist. CARDIOVASCULAR: Regular rate and rhythm. No murmur appreciated. RESPIRATORY: No accessory muscle use. Clear to auscultation, although slightly diminished at bilateral bases with faint rales. Breath sounds equal bilaterally. GASTROINTESTINAL: Abdomen soft, nondistended, nontender today, improved. Normoactive bowel sounds x4. MUSCULOSKELETAL: No obvious deformities. Extremities without clubbing, cyanosis , or edema. NEUROLOGICAL: Awake and alert. No obvious cranial nerve deficits. Motor grossly within normal limits. Moving all extremities spontaneously. Normal speech. PSYCHIATRIC: Appropriate mood and affect; insight and judgment normal. Results Procedures completed during hospitalization: EGD and colonoscopy Pending studies at discharge: Pending at discharge 12/18/17 07:46 Surgical [PTH] Routine Labs on day of discharge: Preliminary micro results at discharge 12/15/17 16:55 Aerobic Blood Culture - Preliminary Blood - Peripheral No growth in 3 days Anaerobic Blood Culture - Preliminary No growth in 3 days 12/15/17 16:50 Aerobic Blood Culture - Preliminary Blood - Peripheral No growth in 3 days Anaerobic Blood Culture - Preliminary No growth in 3 days - Impressions ITS Impressions Abdomen/Pelvis CT 12/15/17 11:39 CONCLUSION: 1. Multiple ventral hernias are noted as above. There is abnormal circumferential bowel wall thickening identified greatest at the transverse colon characteristic of colitis.This is quite prominent at the mid transverse colon and follow-up is recommended after appropriate clinical therapy to ensure no underlying mass is not present. 2. Thoracic and abdominal aortic aneurysms. Abdomen Ultrasound 12/16/17 00:00 CONCLUSION: 1. Nondiagnostic exam. Overlying bowel gas precludes evaluation of aorta and branches. Chest X-Ray 12/17/17 15:38 CONCLUSION: 1. Worsening left lower lung zone airspace disease with questionable trace pleural effusion. 2. Stable right lower lung zone mild airspace disease, presumably atelectasis. Discharge Plan - Discharge Disposition Patient Disposition: /Home Health Service - Discharge Condition Condition: Stable - Discharge Order Discharge Orders: Discharge Order (Routine); Ordered 12/19/17 Ordered By: Chely Spears - Discharge Details Anticipated Discharge Date: 12/19/17 - Physicians Team Primary Care Provider: Bree Ji Attending Provider: Chely Spears Other Providers: Joanna Stanley MD ; Fiorella Easley MD ; Domenico Acuña
--- NOTE | 2017-12-19 09:10 | P.DCO ---
- Diagnosis (1) Colitis Status: Acute (2) HTN (hypertension) Status: Chronic (3) Acute kidney failure Status: Acute (4) AAA (abdominal aortic aneurysm) Status: Chronic (5) Leukocytosis Status: Acute - Physical Therapy Order: Evaluate and treat - Home Health Nursing Order: Medical education, Signs/symptoms of disease process, Medication education-adverse effect, Nursing assessment with vital signs - Case Management Consult Yes - Certification I have seen patient Neftali Avilez on 12/19/17. My clinical findings support the need for the requested home health care services because: Limited mobility due to disease progression, Patient has SOB I certify that my clinical findings support that this patient is homebound because: Post-op weakness
[2017-12-19 09:17] VITALS: TEMP 98.8
--- NOTE | 2017-12-19 14:09 | P.PNGI ---
Subjective Interval history: Patient sitting up in bed watching TV. Tolerating p.o. intake unchanged, denies any nausea vomiting choking or coughing. <Mallory Hernandez - Last Filed: 12/19/17 14:02> Physical Exam Vital signs: Vital Signs 12/18/17 15:18 12/18/17 17:19 12/18/17 19:38 Temperature 98.1 F 96.3 F L Pulse Rate 95 H 90 93 H Respiratory Rate 16 18 Blood Pressure 128/65 118/59 L Pulse Oximetry 89 L 94 L 12/18/17 20:53 12/19/17 08:00 12/19/17 09:38 Temperature 98.8 F Pulse Rate 58 L 78 83 Respiratory Rate 18 18 28 H Blood Pressure 125/62 Pulse Oximetry 90 L 94 L Intake & Output 12/18/17 12/19/17 12/19/17 18:59 06:59 18:59 Intake Total 400 / 400 400 / 400 200 / 200 Balance 400 / 400 400 / 400 200 / 200 Weight 67.585 kg Intake: IV 400 / 400 400 / 400 200 / 200 Cipro 400 MG/200 ML Inj 400 mg 200 / 200 200 / 200 200 / 200 In 200 ml @ 200 mls/hr IV.SIG Q12H TERI Rx#:[id number] Flagyl 500 MG Inj 100 ML @ 100 200 / 200 200 / 200 mls/hr IV.SIG Q8H TERI Rx#: [id number] Other: # Voids 2 2 Date of Last Bowel Movement 12/18/17 # Bowel Movements 1 - Constitutional no acute distress - Routine HEENT Exam Head: Present: normocephalic - Routine Respiratory Exam Present: CTA bilaterally. Absent: accessory muscle use - Routine Cardiovascular Exam Present: RRR - Routine Abdominal Exam Present: soft, normoactive bowel sounds. Absent: tenderness, distended, guarding, firm - Routine Skin Exam Present: dry, warm - Routine Neurological Exam Present: alert, oriented X3 - Routine Psychiatric Exam Present: normal affect, cooperative <Mallory Hernandez - Last Filed: 12/19/17 14:02> Vital signs: Vital Signs 12/19/17 08:00 12/19/17 09:38 12/19/17 12:00 Temperature 98.8 F 98.8 F Pulse Rate 78 83 82 Respiratory Rate 18 28 H 18 Blood Pressure 125/62 112/56 L Pulse Oximetry 90 L 94 L 90 L Intake & Output 12/19/17 12/19/17 12/20/17 06:59 18:59 06:59 Intake Total 400 / 400 200 / 200 Balance 400 / 400 200 / 200 Weight 67.585 kg Intake: IV 400 / 400 200 / 200 Cipro 400 MG/200 ML Inj 400 mg 200 / 200 200 / 200 In 200 ml @ 200 mls/hr IV.SIG Q12H TERI Rx#:[id number] Flagyl 500 MG Inj 100 ML @ 100 200 / 200 mls/hr IV.SIG Q8H TERI Rx#: [id number] Other: # Voids 2 Date of Last Bowel Movement 12/18/17 <Wyatt Wallace - Last Filed: 12/19/17 23:41> Results - Labs CBC & Chem 7: 12/18/17 07:40 12/18/17 07:40 Microbiology 12/15/17 16:55 Blood - Peripheral Aerobic Blood Culture - Preliminary No growth in 4 days 12/15/17 16:55 Blood - Peripheral Anaerobic Blood Culture - Preliminary No growth in 4 days 12/15/17 16:50 Blood - Peripheral Aerobic Blood Culture - Preliminary No growth in 4 days 12/15/17 16:50 Blood - Peripheral Anaerobic Blood Culture - Preliminary No growth in 4 days 12/19/17 05:30 Stool Stool Occult Blood (HELENE) - Final Hemoccult positive 12/17/17 18:30 Sputum - Oral Tracheal Aspirate Gram Stain - Final 12/17/17 18:30 Sputum - Oral Tracheal Aspirate Sputum Culture - Final Heavy growth normal respiratory willow <Mallory Hernandez - Last Filed: 12/19/17 14:02> - Labs CBC & Chem 7: 12/18/17 07:40 12/18/17 07:40 Microbiology 12/15/17 16:55 Blood - Peripheral Aerobic Blood Culture - Preliminary No growth in 4 days 12/15/17 16:55 Blood - Peripheral Anaerobic Blood Culture - Preliminary No growth in 4 days 12/15/17 16:50 Blood - Peripheral Aerobic Blood Culture - Preliminary No growth in 4 days 12/15/17 16:50 Blood - Peripheral Anaerobic Blood Culture - Preliminary No growth in 4 days 12/19/17 05:30 Stool Stool Occult Blood (HELENE) - Final Hemoccult positive 12/17/17 18:30 Sputum - Oral Tracheal Aspirate Gram Stain - Final 12/17/17 18:30 Sputum - Oral Tracheal Aspirate Sputum Culture - Final Heavy growth normal respiratory willow <Wyatt Wallace - Last Filed: 12/19/17 23:41> Assessment and Plan - Plan Mr. Baird is an 82-year-old male patient who presented to the emergency room today at [facility] ER with report of pain across lower abdomen, nausea and vomiting onset yesterday a.m. 0500. Patient describes the pain as a cramping sensation and rates same at 7 out of 10 at this time. He denies that there are any aggravating or alleviating factors. He reports vomiting several times over the last 24 hours "black stuff". Of note, patient states that he takes 1 full strength aspirin 325 mg p.o. daily for his blood pressure. Patient denies hematochezia or melena. Patient states he has a history of liver artery stent placement performed in 2002 and has not had follow-up since. He denies any additional abdominal surgeries. Again, patient reports pain across lower abdomen, pointing to left lower quadrant stating "it is worse there ". Patient denies having any fever or chills. States last colonoscopy in 2002 where he recollects they found polyps that were benign. He reports having 2-3 hard brown bowel movements daily as a normality for him. He denies any noted bleeding. Patient denies ever having had an upper endoscopy. 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 He endorses dysphagia and denies odynophagia. Patient states he smokes 1 pack/day and denies any alcohol use. Patient denies any known family history of gastrointestinal disorders/diseases. (12/15) CT abdomen and pelvis done on admission revealed the following--> Multiple ventral hernias are noted as above.There is abnormal circumferential bowel wall thickening identified greatest at the transverse colon characteristic of colitis.This is quite prominent at the mid transverse colon and follow-up is recommended after appropriate clinical therapy to ensure no underlying mass is not present. Thoracic and abdominal aortic aneurysms. Our service has been consulted to evaluate patient's report of abdominal pain, colitis Colitis/abdominal pain CT abdomen and pelvis results as noted above. WBC 15.8 hemoglobin 14.7 hematocrit 43.3 platelet count 170 INR 1.1 BUN 37 creatinine 1.47 GFR 46 total bilirubin 1.3 AST 17 ALT 21 alk phos 154. Due to patient's noted renal function will proceed with ultrasound of the abdomen to evaluate mesenteric vessels. Will prep patient for EGD colonoscopy tomorrow to evaluate patient's report of dark emesis and lower abdominal pain. 12/17/2017 initially attempted orders for EGD with dilation/colonoscopy but patient was unable to prep adequately. Patient does have some generalized weakness and fatigue and questionable chronic dementia. But does answer simple questions and discussed with him again the need to prep for colonoscopy. Currently patient has some left lower quadrant pain and cramping off and on which is probably related to his colitis. Currently her maintained on Cipro and Flagyl. Hemoglobin 12.7, WBC count 15.4, leukocytosis could be related to patient's colitis. Abdominal ultrasound nondiagnostic. Currently patient denies any nausea vomiting or abdominal pain and is tolerating clear liquids without any choking episodes. 12/19/2017 patient is postop EGD with incomplete colonoscopy. EGD findings reveal an unremarkable esophagus. Random biopsies taken for further evaluation of dysphagia. Hiatal hernia found in the stomach patient also noted to have patchy erythema in the antrum but no ulcerations or erosions. No blood or bleeding noted. Antral biopsies were taken, otherwise gastric mucosa was unremarkable, the duodenum was normal. Colonoscopy incomplete due to poor prep and colitis. Colitis probably ischemic in nature. Plan -Await [id number] days patient advised to call office in 2 weeks for biopsy results and follow-up instructions -Diet as tolerated -Antibiotics -Patient advised to eat slowly and to chew food consistently in order to avoid coughing, choking or difficulty swallowing -Recommended repeat colonoscopy in 2-3 months patient stable today and may be just charged from a GI standpoint. This patient has been seen by myself and Dr. Wallace and this note is written on his behalf - Attending Attestation Dr. Wallace <Mallory Hernandez - Last Filed: 12/19/17 14:02> - Plan Patient seen and examined Agree with above history and physical Continue with current supportive care Monitor labs <Wyatt Wlalace - Last Filed: 12/19/17 23:41>
[2017-12-19 14:36] VITALS: BP 112/56; PULSE 82; RESP 18; O2SAT 90
== END 2017-12-19 15:14 | disposition home health service (06) ==
LOC: NEDA 11:27 → NEPC 11:27 → NEPHCDU 16:22
PROVIDERS: ADMIT Hospitalist; ATTEND Hospitalist
PROC: COLONOS (2017-12-18 11:02)